=== PATIENT | male | born 1960 | race Caucasian/White ===

== ENCOUNTER 2022-01-09 09:58 | Outpatient (CLI) | payer OTHER, SELFPAY | END 2022-01-09 09:59 | disposition home or self-care (01) | LOC: LKVREF 01-22 09:04 | PROVIDERS: Visit Provider Nurse Practitioner Family | DX: R30.0 Dysuria (principal); N39.0 Urinary tract infection, site not specified | CPT/HCPCS: 87086; 87186 ==

== ENCOUNTER 2022-01-22 12:19 | Outpatient (CLI) | payer OTHER, SELFPAY | END 2022-01-22 12:20 | disposition home or self-care (01) | LOC: LKVREF 01-25 14:53 | PROVIDERS: Visit Provider Nurse Practitioner Family | DX: N39.0 Urinary tract infection, site not specified (principal); R30.0 Dysuria | CPT/HCPCS: 87086; 87186 ==

== ENCOUNTER 2022-02-02 22:54 | Outpatient (REF) | payer MEDICARE, SELFPAY ==
[2022-02-02 23:50] LABS: Chloride* 105 mmol/L (96-114); Potassium* 5.1 mmol/L (3.6-5.1); Sodium* 139 mmol/L (135-149)
[2022-02-02 23:53] LABS: Carbon Dioxide* 27 mmol/L (20-32); Creatinine* 1.5 mg/dL (0.5-1.5); Estimated Glomerular Filt Rate 52 ml/min
[2022-02-02 23:54] LABS: Blood Urea Nitrogen* 19 mg/dL (7-30); Calcium* 9.8 mg/dL (8.4-10.6); Glucose* 108 mg/dL (60-115)
[2022-02-02 23:58] LABS: Hematocrit 44.4 % (37.0-53.0); Hemoglobin* 13.7 gm/dL (13.5-17.5); Mean Corpuscular HGB Conc 31 gm/dL (32-36); Mean Corpuscular Hemoglobin 31 pg (26-34); Mean Corpuscular Volume 101 fL (80-100); White Blood Count* 11.52 K/uL (4.50-11.00)
[2022-02-02 23:59] LABS: Basophils Percent Auto 0.3 % (0.0-3.0); Eosinophils Percent Auto 1.9 % (0.0-7.0); Lymphocytes Percent Auto 20.7 % (20-44); Monocytes Percent Auto 7.4 % (0.0-11.0); Neutrophils Percent Auto 66.7 % (42.0-72.0); Platelet Count* 399 K/uL (140-440); Slide Review Reflex No
== END 2022-02-02 22:55 | disposition home or self-care (01) ==
LOC: LAB 22:54
PROVIDERS: Visit Provider Internal Medicine Nephrology
DX: Z94.0 Kidney transplant status (principal); G89.29 Other chronic pain
CPT/HCPCS: 36415; 80048; 85025

== ENCOUNTER 2022-03-10 13:41 | Outpatient (RCR) | payer OTHER, SELFPAY ==
[2022-03-10 13:58] LABS: Hematocrit 49.6 % (37.0-53.0); Hemoglobin* 15.6 gm/dL (13.5-17.5); Mean Corpuscular HGB Conc 32 gm/dL (32-36); Mean Corpuscular Hemoglobin 32 pg (26-34); Mean Corpuscular Volume 101 fL (80-100); Platelet Count* 274 K/uL (140-440)
[2022-03-10 14:04] LABS: Chloride* 108 mmol/L (96-114); Potassium* 4.6 mmol/L (3.6-5.1); Sodium* 139 mmol/L (135-149)
[2022-03-10 14:05] LABS: Slide Review Reflex No
[2022-03-10 14:07] LABS: Blood Urea Nitrogen* 21 mg/dL (7-30); Carbon Dioxide* 26 mmol/L (20-32); Creatinine* 1.7 mg/dL (0.5-1.5); Estimated Glomerular Filt Rate 45 ml/min; Glucose* 111 mg/dL (60-115)
[2022-03-10 14:08] LABS: Calcium* 9.8 mg/dL (8.4-10.6)
[2022-04-08 14:33] LABS: Basophils Absolute Auto 0.05 K/uL (0.00-0.30); Basophils Percent Auto 0.5 % (0.0-3.0); Eosinophils Percent Auto 1.1 % (0.0-7.0); Hematocrit 46.1 % (37.0-53.0); Hemoglobin* 14.8 gm/dL (13.5-17.5); Immature Granulocytes Abs Auto 0.03 K/uL (0.00-0.30); Immature Granulocytes Pct Auto 0.3 %; Lymphocytes Absolute Auto 2.63 K/uL (0.90-2.90); Lymphocytes Percent Auto 28.6 % (20-44); Mean Corpuscular HGB Conc 32 gm/dL (32-36); Mean Corpuscular Hemoglobin 32 pg (26-34); Mean Corpuscular Volume 100 fL (80-100); Neutrophils Absolute Auto 5.45 K/uL (1.7-7.0); Neutrophils Percent Auto 59.5 % (42.0-72.0); Platelet Count* 256 K/uL (140-440); Red Blood Count 4.62 m/uL (4.30-5.90); White Blood Count* 9.18 K/uL (4.50-11.00)
[2022-04-08 14:36] LABS: Chloride* 108 mmol/L (96-114)
[2022-04-08 14:37] LABS: Sodium* 141 mmol/L (135-149)
[2022-04-08 14:38] LABS: Slide Review Reflex No
[2022-04-08 14:39] LABS: Creatinine* 1.5 mg/dL (0.5-1.5); Estimated Glomerular Filt Rate 52 ml/min
[2022-04-08 14:40] LABS: Blood Urea Nitrogen* 17 mg/dL (7-30); Calcium* 9.6 mg/dL (8.4-10.6); Carbon Dioxide* 28 mmol/L (20-32); Glucose* 85 mg/dL (60-115)
== END 2023-02-22 15:14 | disposition home or self-care (01) ==
LOC: LAB 13:41
PROVIDERS: PCP Physician Assistant Medical; Visit Provider Internal Medicine Nephrology
DX: Z94.0 Kidney transplant status (principal); Z79.52 Long term (current) use of systemic steroids; Z79.899 Other long term (current) drug therapy; Z48.22 Encounter for aftercare following kidney transplant
CPT/HCPCS: 36415; 80048; 85025; 85027

== ENCOUNTER 2022-08-27 09:50 | Outpatient (CLI) | payer MEDICARE, SELFPAY | END 2022-08-27 09:51 | disposition home or self-care (01) | PROVIDERS: PCP Physician Assistant Medical; Visit Provider Physician Assistant Medical | DX: I10 Essential (primary) hypertension (principal); R53.83 Other fatigue; N18.6 End stage renal disease; E53.8 Deficiency of other specified B group vitamins; F32.A Depression, unspecified | CPT/HCPCS: 82306; 82607; 82728; 84443 ==

== ENCOUNTER 2022-10-20 09:33 | Outpatient (CLI) | payer OTHER, SELFPAY | END 2022-10-20 09:34 | disposition home or self-care (01) | LOC: NFLDREF 10-21 08:28 | PROVIDERS: PCP Physician Assistant Medical; Referring Provider Physician Assistant Medical; Visit Provider Physician Assistant Medical | DX: E53.8 Deficiency of other specified B group vitamins (principal); R79.89 Other specified abnormal findings of blood chemistry; E55.9 Vitamin D deficiency, unspecified; F33.1 Major depressive disorder, recurrent, moderate | CPT/HCPCS: 82306; 82607 ==

== ENCOUNTER 2023-06-07 11:59 | Outpatient (CLI) | payer OTHER, SELFPAY | END 2023-06-07 12:00 | disposition home or self-care (01) | LOC: NFLDREF 06-08 06:03 | PROVIDERS: PCP Physician Assistant Medical; Referring Provider Physician Assistant Medical; Visit Provider Physician Assistant Medical | DX: Z13.1 Encounter for screening for diabetes mellitus (principal); Z12.5 Encounter for screening for malignant neoplasm of prostate; M10.9 Gout, unspecified; K21.9 Gastro-esophageal reflux disease without esophagitis; E53.8 Deficiency of other specified B group vitamins; I10 Essential (primary) hypertension; N18.6 End stage renal disease; R79.89 Other specified abnormal findings of blood chemistry; N40.1 Benign prostatic hyperplasia with lower urinary tract symptoms; R35.0 Frequency of micturition; N52.9 Male erectile dysfunction, unspecified; G40.909 Epilepsy, unspecified, not intractable, without status epilepticus; F90.0 Attention-deficit hyperactivity disorder, predominantly inattentive type; F33.1 Major depressive disorder, recurrent, moderate; I48.91 Unspecified atrial fibrillation | CPT/HCPCS: 80053; 80061; 82306; 82607; 84443; G0103 ==

== ENCOUNTER 2024-09-24 16:14 | Outpatient (CLI) | payer OTHER, SELFPAY | END 2024-09-24 16:15 | disposition home or self-care (01) | LOC: NFLDREF 09-26 02:40 | PROVIDERS: PCP Physician Assistant Medical; Referring Provider Physician Assistant Medical; Visit Provider Physician Assistant Medical | DX: M10.9 Gout, unspecified (principal); E53.8 Deficiency of other specified B group vitamins; E55.9 Vitamin D deficiency, unspecified; I12.0 Hypertensive chronic kidney disease with stage 5 chronic kidney disease or end stage renal disease; N18.6 End stage renal disease; N40.1 Benign prostatic hyperplasia with lower urinary tract symptoms; R35.0 Frequency of micturition; E66.01 Morbid (severe) obesity due to excess calories; Z12.5 Encounter for screening for malignant neoplasm of prostate | CPT/HCPCS: 80053; 80061; 82043; 82306; 82570; 82607; 84443; G0103 ==

== ENCOUNTER 2024-10-31 14:12 | Outpatient (CLI) | payer OTHER, SELFPAY | END 2024-10-31 14:13 | disposition home or self-care (01) | LOC: FRMREF 14:13 | PROVIDERS: PCP Physician Assistant Medical; Visit Provider Physician Assistant Medical | DX: N30.01 Acute cystitis with hematuria (principal) | CPT/HCPCS: 87086 ==

== ENCOUNTER 2025-02-21 00:06 | Emergency (ER) | payer OTHER, SELFPAY ==
--- OUTSIDE RECORDS SUMMARY | 2025-01-24 19:00 | XMS_ITS | Clinical Summary ---
Author Organization Unknown Care Team Providers Care Intensive Care Medicine Specialist Name Role Phone MARTHA RASCON Unavailable Unavailable YOVANY EPIC SPECIALIST, DANIEL Unavailable Unavailable GRANT PT, JUAN F Unavailable Unavailable SCARLETT SACK SORTER, WILDA Unavailable Unavailable CHONG RN, VIKKI Unavailable Unavailable Payers Payer Name Policy Type Policy Number Effective Date Expira tion Date [employer] MEDICARE ADVANTAGE PDGM Problems Condition Name Condition Details Condition Category Status Onset Date Resolution Date Last Treatment Date Treating Clinician Comments HYP HRT AND CHR KDNY DIS W HRT FAIL AND STG 1-4/UNSP CHR KDNY Active 11-08 00:00: 00 CHRONIC COMBINED SYSTOLIC AND DIASTOLIC HRT FAIL Active 11-08 00:00: 00 CHRONIC KIDNEY DISEASE, UNSPECIFIED Active 11-08 00:00: 00 TYPICAL ATRIAL FLUTTER Active 11-08 00:00: 00 OTHER PERSISTENT ATRIAL FIBRILLATION Active 11-08 00:00: 00 EPILEPSY, UNSP, NOT INTRACTABLE, WITHOUT STATUS EPILEPTICUS Active 11-08 00:00: 00 ANEURYSM OF OTHER SPECIFIED ARTERIES Active 11-08 00:00: 00 RESTLESS LEGS SYNDROME Active 11-08 00:00: 00 VITAMIN D DEFICIENCY, UNSPECIFIED Active 11-08 00:00: 00 OBSTRUCTIVE SLEEP APNEA (ADULT) (PEDIATRIC) Active 11-08 00:00: 00 HYPERLIPIDEM IA, UNSPECIFIED Active 11-08 00:00: 00 POLYNEUROPAT HY, UNSPECIFIED Active 11-08 00:00: 00 RADICULOPATH Y, CERVICAL REGION Active 11-08 00:00: 00 PREDIABETES Active 11-08 00:00: 00 BENIGN PROSTATIC HYPERPLASIA WITHOUT LOWER URINRY TRACT SYMP Active 11-08 00:00: 00 GOUT, UNSPECIFIED Active 11-08 00:00: 00 GASTRO-ESOPH AGEAL REFLUX DISEASE WITHOUT ESOPHAGITIS Active 11-08 00:00: 00 DEPRESSION, UNSPECIFIED Active 11-08 00:00: 00 ANEMIA IN CHRONIC KIDNEY DISEASE Active 11-08 00:00: 00 UNSPECIFIED OSTEOARTHRIT IS, UNSPECIFIED SITE Active 11-08 00:00: 00 KIDNEY TRANSPLANT STATUS Active 11-08 00:00: 00 PERSONAL HISTORY OF OTHER MALIGNANT NEOPLASM OF SKIN Active 11-08 00:00: 00 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 Active 01-04 00:00: 00 [facility] (CURRENT) USE OF SYSTEMIC STEROIDS Active 01-04 00:00: 00 PERSONAL HISTORY OF URINARY (TRACT) INFECTIONS Active 01-04 00:00: 00 Allergies, Adverse Reactions, Alerts Allergy Name Allergy Type Status Severity Reaction(s) Onset Date Inactive Date Treating Clinician Comments IBUPROFEN Propensity to adverse reactions Active 11-08 14:57: 01 MILK Propensity to adverse reactions Active 11-08 14:56: 03 NSAIDS Propensity to adverse reactions Active 11-08 14:56: 42 LACTOSE Propensity to adverse reactions Active 11-08 14:56: 09 GLUTEN MEAL Propensity to adverse reactions Active 11-08 14:56: 15 MOLDS AND SMUTS Propensity to adverse reactions Active 07 10:50: 30 YEAST RELATED PRODUCTS Propensity to adverse reactions Active 11-08 14:57: 11 Medications Ordered Medication Name Filled Medication Name Start Date Stop Date Current Medication? Ordering Clinician Indication Dosage Frequency Signature (SIG) Comments Components acetaminoph en 500 mg tablet 11-08 00:00: 00 Yes [id number] PAIN 2 tablet NEEDED 2 tablet NEEDED (route: oral) Med Classific ation: Analgesic , Anti-infl ammatory or Antipyret ic acyclovir 200 mg capsule 11-08 00:00: 00 Yes [id number] HERPES 1 capsule 2 TIMES DAILY 1 capsule 2 TIMES DAILY (route: oral) Med Classific ation: Anti-Infe ctive Agents allopurinol 100 mg tablet 11-08 00:00: 00 Yes [id number] GOUT 1 tablet DAILY 1 tablet DAILY (route: oral) Med Classific ation: Gout and Hyperuric emia Therapy amoxicillin 500 mg tablet 11-08 00:00: 00 11-09 23:59 :00 No [id number] UTI 1 tablet 3 TIMES DAILY 1 tablet 3 TIMES DAILY (route: oral) Med Classific ation: Anti-Infe ctive Agents cyclosporin e 25 mg capsule 11-08 00:00: 00 Yes [id number] IMMUNOSUPRE SSANT 3 capsule 2 TIMES DAILY 3 capsule 2 TIMES DAILY (route: oral) Med Classific ation: Immunosup pressive Agents Eliquis 5 mg tablet 11-08 00:00: 00 Yes [id number] AFIB 1 tablet EVERY 12 HOURS 1 tablet EVERY 12 HOURS (route: oral) Med Classific ation: Hematolog ical Agents Keppra 250 mg tablet 11-08 00:00: 00 Yes [id number] SEIZURES 3 tablet 2 TIMES DAILY 3 tablet 2 TIMES DAILY (route: oral) Med Classific ation: Central Nervous System Agents metoprolol succinate ER 200 mg tablet,exte nded release 24 hr 11-08 00:00: 00 Yes [id number] HTN 1 tablet DAILY 1 tablet DAILY (route: oral) Med Classific ation: Cardiovas cular Therapy Agents mycophenola te mofetil 500 mg tablet 11-08 00:00: 00 Yes [id number] KIDNEY TRANSPLANT 2 tablet 2 TIMES DAILY 2 tablet 2 TIMES DAILY (route: oral) Med Classific ation: Immunosup pressive Agents omeprazole 20 mg capsule,del ayed release 11-08 00:00: 00 Yes [id number] GERD 1 capsule DAILY 1 capsule DAILY (route: oral) Med Classific ation: Gastroint estinal Therapy Agents ondansetron 4 mg disintegrat ing tablet 11-08 00:00: 00 Yes [id number] NAUSEA AND VOMITING 1 tablet NEEDED 1 tablet NEEDED (route: oral) Med Classific ation: Gastroint estinal Therapy Agents pravastatin 80 mg tablet 11-08 00:00: 00 Yes [id number] CHOLESTEROL 1 tablet DAILY 1 tablet DAILY (route: oral) Med Classific ation: Cardiovas cular Therapy Agents prednisone 5 mg tablet 11-08 00:00: 00 Yes [id number] STERIOD 1 tablet DAILY 1 tablet DAILY (route: oral) Med Classific ation: Endocrine Refresh Tears 0.5 % eye drops 11-08 00:00: 00 11-08 23:59 :00 No [id number] DRY EYES 1 drops 4 TIMES DAILY 1 drops 4 TIMES DAILY (route: ophthalmic (eye)) Med Classific ation: Ophthalmi c Agents sennosides 8.6 mg-docusate sodium 50 mg tablet 11-08 00:00: 00 Yes [id number] CONSTIPATIO N 1 tablet 2 TIMES DAILY 1 tablet 2 TIMES DAILY (route: oral) Med Classific ation: Gastroint estinal Therapy Agents tamsulosin 0.4 mg capsule 11-08 00:00: 00 Yes [id number] URINARY RETENTION 1 capsule DAILY 1 capsule DAILY (route: oral) Med Classific ation: Genitouri nary Therapy trazodone 50 mg tablet 11-08 00:00: 00 12-07 23:59 :00 No [id number] SLEEP 1 tablet DAILY 1 tablet DAILY (route: oral) Med Classific ation: Central Nervous System Agents venlafaxine ER 150 mg capsule,ext ended release 24 hr 11-08 00:00: 00 Yes [id number] ADHD 1 capsule DAILY 1 capsule DAILY (route: oral) Med Classific ation: Central Nervous System Agents amoxicillin 500 mg capsule 11-12 00:00: 00 11-19 23:59 :00 No [id number] UTI 1 capsule 3 TIMES DAILY 1 capsule 3 TIMES DAILY (route: oral) Med Classific ation: Anti-Infe ctive Agents cephalexin 500 mg capsule 12-11 00:00: 00 12-25 23:59 :00 No [id number] WOUND INFECTION 1 capsule 2 TIMES DAILY 1 capsule 2 TIMES DAILY (route: oral) Med Classific ation: Anti-Infe ctive Agents Immunizations Ordered Immunization Name Filled Immunization Name Date Status Comments Refusal Reason COVID-19 PFIZER 2, COVID-19 PFIZER 2 2024-02-29 00:00:00 INFLUENZA, LAIV (LIVE VIRUS) 2024-02-29 00:00:00 SHINGLES, TIV (INACTIVATED) 2019-03-12 00:00:00 PNEUMOCOCCAL (PPV), PPV 2018-01-05 00:00:00 Vital Signs Vital Name Observation Time Observation Value Commen ts Temperature 2025-01-25 09:19:00.000 97.8 [degF] Temperature 2025-01-16 12:36:00.000 97.6 [degF] Temperature 2025-01-10 10:39:00.000 97.8 [degF] Pulse 2025-01-25 09:19:00.000 97 /min Pulse 2025-01-16 12:36:00.000 87 /min Pulse 2025-01-10 10:39:00.000 99 /min O2 Saturation (%) 2025-01-25 09:19:00.000 95 % O2 Saturation (%) 2025-01-16 12:36:00.000 94 % O2 Saturation (%) 2025-01-10 10:39:00.000 95 % Respirations 2025-01-25 09:19:00.000 16 /min Respirations 2025-01-16 12:36:00.000 16 /min Respirations 2025-01-10 10:39:00.000 16 /min Weight (lbs) 2025-01-25 09:20:00.000 259 [lb_av] Weight (lbs) 2025-01-10 10:40:00.000 267 [lb_av] Systolic Blood Pressure 2025-01-25 09:19:00.000 127 mm [Hg] Systolic Blood Pressure 2025-01-16 12:36:00.000 149 mm [Hg] Systolic Blood Pressure 2025-01-10 10:39:00.000 128 mm [Hg] Diastolic Blood Pressure 2025-01-25 09:19:00.000 81 mm [Hg] Diastolic Blood Pressure 2025-01-16 12:36:00.000 103 m m[Hg] Diastolic Blood Pressure 2025-01-10 10:39:00.000 86 mm [Hg] Plan of Treatment Planned Activity Planned Date Details Comments Future Scheduled Test SKILLED NU RSE TO EVALUATE AND DEVELOP PLAN OF CARE TO BE COUNTERSIGNED BY PHYSICIAN. SKILLED NURSE TO ASSESS/EVALUATE CO-MORBID CONDITIONS INCLUDING A41.81 SEPSIS DUE TO ENTEROCOCCUS ONSET: 11/08/2024 N39.0 URINARY TRACT INFECTION, SITE NOT SPECIFIED EXACERBATION: 11/08/2024 I48.3 TYPICAL ATRIAL FLUTTER EXACERBATION: 11/08/2024 I48.19 OTHER PERSISTENT ATRIAL FIBRILLATION EXACERBATION: 11/08/2024 G40.909 EPILEPSY, UNSP, NOT INTRACTABLE, WITHOUT STATUS EPILEPTICUS EXACERBATION: 11/08/2024 I72.8 ANEURYSM OF OTHER SPECIFIED ARTERIES EXACERBATION: 11/08/2024 I13.0 HYP HRT CHR KDNY DIS W HRT FAIL AND STG 1-4/UNSP CHR KDNY EXACERBATION: 11/08/2024 I50.42 CHRONIC COMBINED SYSTOLIC AND DIASTOLIC HRT FAIL EXACERBATION: 11/08/2024 N18.9 CHRONIC KIDNEY DISEASE, UNSPECIFIED EXACERBATION: 11/08/2024 G25.81 RESTLESS LEGS SYNDROME EXACERBATION: 11/08/2024 E55.9 VITAMIN D DEFICIENCY, UNSPECIFIED EXACERBATION: 11/08/2024 G47.33 OBSTRUCTIVE SLEEP APNEA (ADULT) (PEDIATRIC) EXACERBATION: 11/08/2024 E78.5 HYPERLIPIDEMIA, UNSPECIFIED EXACERBATION: 11/08/2024 G62.9 POLYNEUROPATHY, UNSPECIFIED EXACERBATION: 11/08/2024 M54.12 RADICULOPATHY, CERVICAL REGION EXACERBATION: 11/08/2024 R73.03 PREDIABETES EXACERBATION: 11/08/2024 N40.0 BENIGN PROSTATIC HYPERPLASIA WITHOUT LOWER URINRY TRACT SYMP EXACERBATION: 11/08/2024 M10.9 GOUT, UNSPECIFIED EXACERBATION: 11/08/2024 K21.9 GASTRO-ESOPHAGEAL REFLUX DISEASE WITHOUT ESOPHAGITIS EXACERBATION: 11/08/2024 D63.1 ANEMIA IN CHRONIC KIDNEY DISEASE EXACERBATION: 11/08/2024 F32.A DEPRESSION, UNSPECIFIED EXACERBATION: 11/08/2024 M19.90 UNSPECIFIED OSTEOARTHRITIS, UNSPECIFIED SITE EXACERBATION: 11/08/2024 Z94.0 KIDNEY TRANSPLANT STATUS EXACERBATION: 11/08/2024 Z85.828 PERSONAL HISTORY OF OTHER MALIGNANT NEOPLASM OF SKIN EXACERBATION: 11/08/2024 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 HOME HEALTH AGENCY MAY ACCEPT ORDERS FROM THE FOLLOWING PHYSICIANS AND THEIR ASSOCIATES: MARTHA RASCON, DONY ROBERTSON, PINEDA VEGA, PAULINA ESTRADA, GERRY FIERRO EMERGENCY PREPAREDNESS PLAN: REVIEWED EMERGENCY PREPAREDNESS PLAN, CLIENT WILL EVACUATE TO [facility] IN PLACE EVACUATION PLAN IN THE EVENT OF AN EMERGENCY. ACUITY STATUS: WITHIN A WEEK POC SUMMARY: PRIMARY DIAGNOSIS FOR CONTINUED (RECERT) CARE- I50.42 CHRONIC COMBINED SYSTOLIC AND DIASTOLIC HRT FAIL REASON FOR CONTINUED CARE: (WHY PREVIOUS GOALS WERE NOT MET WHAT CAUSED THE GOALS NOT TO BE MET IN PREVIOUS EPISODE. COMORBIDITIES IMPACT ON CARE ) ONGOING HYPERTENSION RELATED TO CHF AND WOUND CARE TO BACK. IN NEED OF ONGOING MONITORING RELATED TO BP MANAGEMENT AND WOUND CARE ARE THERE ANY NEW MEDICAL CONDITIONS SINCE SOC/MY NO MEDICATION RECONCILIATION RESULTS (NEW OR CHANGED MEDICATIONS MISSED DOSES PROGRESS OF CAREGIVER TRAINING ) MEDICATION RECONCILIATION COMPLETED. REVIEWED ALL CURRENT MEDICATIONS INCLUDING NAME, DOSAGE, TIMING, AND PURPOSE. DISCUSSED COMMON SIDE EFFECTS AND IMPORTANCE OF ADHERENCE. EDUCATED ON USE OF A WEEKLY PILL ORGANIZER TO PROMOTE COMPLIANCE AND REDUCE RISK OF ERRORS. NO DISCREPANCIES NOTED. PATIENT VERBALIZED UNDERSTANDING AND AGREED TO CONTINUE CURRENT REGIMEN. ADDITIONAL DISCIPLINES ORDERED AND WHY LALITO MURILLO ESTIMATED DURATION OF CONTINUED SKILLED CARE: (NUMBER OF WEEKS VISITS PLOTTED) 1X A WEEK FOR 3 WEEKS ANY ER/HOSPITALIZATION CARE DURING PREVIOUS EPISODE (IF YES, PROVIDE DETAILS QI REPORTS, ACL NOTES, COORDINATION NOTES) NO DOES THE CLIENT EXHIBIT COGNITIVE OR BEHAVIORAL DEFICITS IMPACTING ADHERENCE TO HOME HEALTH PLAN OF CARE IF YES, EXPLAIN NO DOES THE CLIENT/CAREGIVER HAVE APPROPRIATE RETURN DEMONSTRATION OF SKILLS OR EDUCATION IF YES, EXPLAIN PLAN FOR DISCHARGE. IF NO, EXPLAIN PLAN FOR MEETING NEEDS. YES, WILL DC WHEN WOUND IS HEALED AND BP IS WELL MANAGED [facility] 10 SCORE- 5 PLEASE NOTE IF SCORE 7 OR ABOVE, FOLLOWING QUESTIONS MUST BE ANSWERED, FOR OF SCORE 4-6- HIGHLY RECOMMENDED TO ANSWER: 1> WHAT SPECIFIC INTERVENTIONS ARE IN PLAN OF CARE TO PREVENT A FALL EDUCATION AND ASSISTIVE DEVICES 2> DOES THERAPY NEED TO BE INVOLVED (IF NOT ALREADY ORDERED) NO 3> IS LEVEL OF CARE APPROPRIATE FOR CLIENT TO PREVENT FALLS YES 4> ANY ADDITIONAL EQUIPMENT NEEDED TO PREVENT FALLS NO 5> HOW MANY FALLS HAS CLIENT HAD SINCE LAST SOC/MY 1 [code = SKILLED NURSE TO EVALUATE AND DEVELOP PLAN OF CARE TO BE COUNTERSIGNED BY PHYSICIAN. SKILLED NURSE TO ASSESS/EVALUATE CO-MORBID CONDITIONS INCLUDING A41.81 SEPSIS DUE TO ENTEROCOCCUS ONSET: 11/08/2024 N39.0 URINARY TRACT INFECTION, SITE NOT SPECIFIED EXACERBATION: 11/08/2024 I48.3 TYPICAL ATRIAL FLUTTER EXACERBATION: 11/08/2024 I48.19 OTHER PERSISTENT ATRIAL FIBRILLATION EXACERBATION: 11/08/2024 G40.909 EPILEPSY, UNSP, NOT INTRACTABLE, WITHOUT STATUS EPILEPTICUS EXACERBATION: 11/08/2024 I72.8 ANEURYSM OF OTHER SPECIFIED ARTERIES EXACERBATION: 11/08/2024 I13.0 HYP HRT CHR KDNY DIS W HRT FAIL AND STG 1-4/UNSP CHR KDNY EXACERBATION: 11/08/2024 I50.42 CHRONIC COMBINED SYSTOLIC AND DIASTOLIC HRT FAIL EXACERBATION: 11/08/2024 N18.9 CHRONIC KIDNEY DISEASE, UNSPECIFIED EXACERBATION: 11/08/2024 G25.81 RESTLESS LEGS SYNDROME EXACERBATION: 11/08/2024 E55.9 VITAMIN D DEFICIENCY, UNSPECIFIED EXACERBATION: 11/08/2024 G47.33 OBSTRUCTIVE SLEEP APNEA (ADULT) (PEDIATRIC) EXACERBATION: 11/08/2024 E78.5 HYPERLIPIDEMIA, UNSPECIFIED EXACERBATION: 11/08/2024 G62.9 POLYNEUROPATHY, UNSPECIFIED EXACERBATION: 11/08/2024 M54.12 RADICULOPATHY, CERVICAL REGION EXACERBATION: 11/08/2024 R73.03 PREDIABETES EXACERBATION: 11/08/2024 N40.0 BENIGN PROSTATIC HYPERPLASIA WITHOUT LOWER URINRY TRACT SYMP EXACERBATION: 11/08/2024 M10.9 GOUT, UNSPECIFIED EXACERBATION: 11/08/2024 K21.9 GASTRO-ESOPHAGEAL REFLUX DISEASE WITHOUT ESOPHAGITIS EXACERBATION: 11/08/2024 D63.1 ANEMIA IN CHRONIC KIDNEY DISEASE EXACERBATION: 11/08/2024 F32.A DEPRESSION, UNSPECIFIED EXACERBATION: 11/08/2024 M19.90 UNSPECIFIED OSTEOARTHRITIS, UNSPECIFIED SITE EXACERBATION: 11/08/2024 Z94.0 KIDNEY TRANSPLANT STATUS EXACERBATION: 11/08/2024 Z85.828 PERSONAL HISTORY OF OTHER MALIGNANT NEOPLASM OF SKIN EXACERBATION: 11/08/2024 Z79.01 [facility] (CURRENT) USE OF ANTICOAGULANTS EXACERBATION: 11/08/2024 Z79.52 [facility] (CURRENT) USE OF SYSTEMIC STEROIDS EXACERBATION: 11/08/2024 AND OTHER CONDITIONS THAT PRESENT THEMSELVES DURING THE COURSE OF THIS EPISODE TO IDENTIFY CHANGES AND INTERVENE TO MINIMIZE COMPLICATIONS. HOME HEALTH AGENCY MAY ACCEPT ORDERS FROM THE FOLLOWING PHYSICIANS AND THEIR ASSOCIATES: MARTHA RASCON, DONY ROBERTSON, PINEDA VEGA, PAULINA ESTRADA, GERRY FIERRO EMERGENCY PREPAREDNESS PLAN: REVIEWED EMERGENCY PREPAREDNESS PLAN, CLIENT WILL EVACUATE TO [facility] IN PLACE EVACUATION PLAN IN THE EVENT OF AN EMERGENCY. ACUITY STATUS: WITHIN A WEEK POC SUMMARY: PRIMARY DIAGNOSIS FOR CONTINUED (RECERT) CARE- I50.42 CHRONIC COMBINED SYSTOLIC AND DIASTOLIC HRT FAIL REASON FOR CONTINUED CARE: (WHY PREVIOUS GOALS WERE NOT MET WHAT CAUSED THE GOALS NOT TO BE MET IN PREVIOUS EPISODE. COMORBIDITIES IMPACT ON CARE ) ONGOING HYPERTENSION RELATED TO CHF AND WOUND CARE TO BACK. IN NEED OF ONGOING MONITORING RELATED TO BP MANAGEMENT AND WOUND CARE ARE THERE ANY NEW MEDICAL CONDITIONS SINCE SOC/MY NO MEDICATION RECONCILIATION RESULTS (NEW OR CHANGED MEDICATIONS MISSED DOSES PROGRESS OF CAREGIVER TRAINING ) MEDICATION RECONCILIATION COMPLETED. REVIEWED ALL CURRENT MEDICATIONS INCLUDING NAME, DOSAGE, TIMING, AND PURPOSE. DISCUSSED COMMON SIDE EFFECTS AND IMPORTANCE OF ADHERENCE. EDUCATED ON USE OF A WEEKLY PILL ORGANIZER TO PROMOTE COMPLIANCE AND REDUCE RISK OF ERRORS. NO DISCREPANCIES NOTED. PATIENT VERBALIZED UNDERSTANDING AND AGREED TO CONTINUE CURRENT REGIMEN. ADDITIONAL DISCIPLINES ORDERED AND WHY LALITO MURILLO ESTIMATED DURATION OF CONTINUED SKILLED CARE: (NUMBER OF WEEKS VISITS PLOTTED) 1X A WEEK FOR 3 WEEKS ANY ER/HOSPITALIZATION CARE DURING PREVIOUS EPISODE (IF YES, PROVIDE DETAILS QI REPORTS, ACL NOTES, COORDINATION NOTES) NO DOES THE CLIENT EXHIBIT COGNITIVE OR BEHAVIORAL DEFICITS IMPACTING ADHERENCE TO HOME HEALTH PLAN OF CARE IF YES, EXPLAIN NO DOES THE CLIENT/CAREGIVER HAVE APPROPRIATE RETURN DEMONSTRATION OF SKILLS OR EDUCATION IF YES, EXPLAIN PLAN FOR DISCHARGE. IF NO, EXPLAIN PLAN FOR MEETING NEEDS. YES, WILL DC WHEN WOUND IS HEALED AND BP IS WELL MANAGED [facility] 10 SCORE- 5 PLEASE NOTE IF SCORE 7 OR ABOVE, FOLLOWING QUESTIONS MUST BE ANSWERED, FOR OF SCORE 4-6- HIGHLY RECOMMENDED TO ANSWER: 1> WHAT SPECIFIC INTERVENTIONS ARE IN PLAN OF CARE TO PREVENT A FALL EDUCATION AND ASSISTIVE DEVICES 2> DOES THERAPY NEED TO BE INVOLVED (IF NOT ALREADY ORDERED) NO 3> IS LEVEL OF CARE APPROPRIATE FOR CLIENT TO PREVENT FALLS YES 4> ANY ADDITIONAL EQUIPMENT NEEDED TO PREVENT FALLS NO 5> HOW MANY FALLS HAS CLIENT HAD SINCE LAST SOC/MY 1] Future Scheduled Test SKILLED NU RSE TO PROVIDE INSTRUCTION IN ENERGY CONSERVATION TECHNIQUES DESIGNED TO MAXIMIZE PATIENT'S PRODUCTIVITY WITH FUNCTIONAL ACTIVITIES. [code = SKILLED NURSE TO PROVIDE INSTRUCTION IN ENERGY CONSERVATION TECHNIQUES DESIGNED TO MAXIMIZE PATIENT'S PRODUCTIVITY WITH FUNCTIONAL ACTIVITIES.] Future Scheduled Test SKILLED NU RSE TO OBSERVE AND ASSESS CARDIOVASCULAR SYSTEM TO IDENTIFY CHANGES AND INTERVENE TO MINIMIZE COMPLICATIONS. SKILLED NURSE TO PROVIDE SKILLED TEACHING RELATED TO ALTERED CARDIOVASCULAR STATUS INCLUDING PATHOPHYSIOLOGY, NUTRITION, MEDICATION REGIMEN, AND PERMITTED ACTIVITIES. MAY PERFORM O2 SATURATION LEVELS PRN FOR SIGNS AND/OR SYMPTOMS OF POSSIBLE RESPIRATORY COMPLICATIONS. [code = SKILLED NURSE TO OBSERVE AND ASSESS CARDIOVASCULAR SYSTEM TO IDENTIFY CHANGES AND INTERVENE TO MINIMIZE COMPLICATIONS. SKILLED NURSE TO PROVIDE SKILLED TEACHING RELATED TO ALTERED CARDIOVASCULAR STATUS INCLUDING PATHOPHYSIOLOGY, NUTRITION, MEDICATION REGIMEN, AND PERMITTED ACTIVITIES. MAY PERFORM O2 SATURATION LEVELS PRN FOR SIGNS AND/OR SYMPTOMS OF POSSIBLE RESPIRATORY COMPLICATIONS.] Future Scheduled Test SKILLED NU RSE TO PROVIDE SKILLED TEACHING/REINFORCEMENT OF MANAGEMENT OF HYPERTENSION. [code = SKILLED NURSE TO PROVIDE SKILLED TEACHING/REINFORCEMENT OF MANAGEMENT OF HYPERTENSION.] Future Scheduled Test WOUND CARE TO SURGICAL SITE WOUND ON BACK: CLEANSE WITH WOUND CLEANSER, PAT DRY, APPLY STERILE HONEY, COVER WITH BORDERED FOAM DRESSING 2X A WEEK AND PRN. [code = WOUND CARE TO SURGICAL SITE WOUND ON BACK: CLEANSE WITH WOUND CLEANSER, PAT DRY, APPLY STERILE HONEY, COVER WITH BORDERED FOAM DRESSING 2X A WEEK AND PRN.] Future Scheduled Test SKILLED NU RSE TO INSTRUCT ON INFECTION CONTROL MEASURES [code = SKILLED NURSE TO INSTRUCT ON INFECTION CONTROL MEASURES] Future Scheduled Test SKILLED NU RSE FOR OBSERVATION / ASSESSMENT HOSPITALIZATION RISKS TO IDENTIFY CHANGES AND INTERVENE TO MINIMIZE COMPLICATIONS RELATED TO IDENTIFIED HOSPITALIZATION RISKS OF MULTIPLE HOSPITALIZATIONS AND / OR MULTIPLE EMERGENCY DEPARTMENT VISITS IN THE PAST SIX MONTHS SKILLED NURSE TO PROVIDE SKILLED TEACHING RELATED TO THESE HOSPITALIZATION RISKS INCLUDING ADDRESSING ASSESSMENT OF CAUSITIVE DIAGNOSES, IDENTIFY CLIENT SPECIFIC BARRIERS INCREASING RISK AND ENSURING CLIENTS ABILITY TO IDENTIFY SYMPTOMS FOR FOLLOW UP. [code = SKILLED NURSE FOR OBSERVATION / ASSESSMENT HOSPITALIZATION RISKS TO IDENTIFY CHANGES AND INTERVENE TO MINIMIZE COMPLICATIONS RELATED TO IDENTIFIED HOSPITALIZATION RISKS OF MULTIPLE HOSPITALIZATIONS AND / OR MULTIPLE EMERGENCY DEPARTMENT VISITS IN THE PAST SIX MONTHS SKILLED NURSE TO PROVIDE SKILLED TEACHING RELATED TO THESE HOSPITALIZATION RISKS INCLUDING ADDRESSING ASSESSMENT OF CAUSITIVE DIAGNOSES, IDENTIFY CLIENT SPECIFIC BARRIERS INCREASING RISK AND ENSURING CLIENTS ABILITY TO IDENTIFY SYMPTOMS FOR FOLLOW UP.] Future Scheduled Test SKILLED NU RSE FOR OBSERVATION / ASSESSMENT HOSPITALIZATION RISKS TO IDENTIFY CHANGES AND INTERVENE TO MINIMIZE COMPLICATIONS RELATED TO IDENTIFIED HOSPITALIZATION RISKS OF DECLINE IN MENTAL, EMOTIONAL, OR BEHAVIORAL STATUS AND / OR DIFFICULTY COMPLYING WITH MEDICAL INSTRUCTIONS IN THE PAST THREE MONTHS. SKILLED NURSE TO PROVIDE SKILLED TEACHING RELATED TO THESE HOSPITALIZATION RISKS INCLUDING ADDRESSING CLIENT / CAREGIVER STRATERIES FOR PREVENTION OF INJURY AND CARE TEAM INITIATIVES TO FACILITATE COMMUNICATION AND RECOGNIZE CHANGES FROM BASELINE. [code = SKILLED NURSE FOR OBSERVATION / ASSESSMENT HOSPITALIZATION RISKS TO IDENTIFY CHANGES AND INTERVENE TO MINIMIZE COMPLICATIONS RELATED TO IDENTIFIED HOSPITALIZATION RISKS OF DECLINE IN MENTAL, EMOTIONAL, OR BEHAVIORAL STATUS AND / OR DIFFICULTY COMPLYING WITH MEDICAL INSTRUCTIONS IN THE PAST THREE MONTHS. SKILLED NURSE TO PROVIDE SKILLED TEACHING RELATED TO THESE HOSPITALIZATION RISKS INCLUDING ADDRESSING CLIENT / CAREGIVER STRATERIES FOR PREVENTION OF INJURY AND CARE TEAM INITIATIVES TO FACILITATE COMMUNICATION AND RECOGNIZE CHANGES FROM BASELINE.] Future Scheduled Test SKILLED NU RSE TO PROVIDE AND INSTRUCT REGARDING FALL PREVENTION INTERVENTIONS. [code = SKILLED NURSE TO PROVIDE AND INSTRUCT REGARDING FALL PREVENTION INTERVENTIONS.] Future Scheduled Test SKILLED NU RSE TO MONITOR PLAN FOR CURRENT TREATMENT OF DEPRESSION SUCH EFFECTS OF MEDICATION AND/OR NEED FOR REFERRAL FOR OTHER TREATMENT. [code = SKILLED NURSE TO MONITOR PLAN FOR CURRENT TREATMENT OF DEPRESSION SUCH EFFECTS OF MEDICATION AND/OR NEED FOR REFERRAL FOR OTHER TREATMENT.] Future Scheduled Test SKILLED NU RSE TO PROVIDE/INSTRUCT REGARDING INTERVENTION(S) TO MONITOR AND MITIGATE PAIN. [code = SKILLED NURSE TO PROVIDE/INSTRUCT REGARDING INTERVENTION(S) TO MONITOR AND MITIGATE PAIN.] Future Scheduled Test VIKKI GREENE 01/07/2025 VO FROM AGENT RN FOR MARTHA RASCON WITH [facility] FOR RECERTIFICATION OF SN 1X A WEEK FOR 3 WEEKS [code = VIKKI SCHWARZ 01/07/2025 VO FROM AGENT TERRY FOR MARTHA RASCON WITH [facility] FOR RECERTIFICATION OF SN 1X A WEEK FOR 3 WEEKS] Goal 2025-01-04 Patient Goal - G ET STRONGER, GET RID OF INFECTION Goal Patient Goal - G ET STRONGER, GET RID OF INFECTION Goal Provider Goal - A PLAN OF CARE WILL BE ESTABLISHED THAT MEETS THE PATIENT'S NURSING NEEDS AND COUNTERSIGNED BY PHYSICIAN. ALL GOALS TO BE MET BY END OF CURRENTLY APPROVED PLAN OF CARE. Goal Provider Goal - PATIENT / CAREGIVER TO DEMONSTRATE UNDERSTANDING OF AND COMPLIANCE WITH ENERGY CONSERVATION MEASURES, EVIDENCED BY INCREASED PRODUCTIVITY WITH FUNCTIONAL ACTIVITIES EOE: 03/07/2025 Goal Provider Goal - CARDIOVASCULAR EXACERBATIONS WILL BE IDENTIFIED PROMPTLY AND INTERVENTIONS INITIATED TO MINIMIZE RISKS. PATIENT/CAREGIVER WILL VERBALIZE/DEMONSTRATE AN ABILITY TO MANAGE CARDIOVASCULAR DISEASE EVIDENCED BY NO UNPLANNED HOSPITALIZATIONS BY .EOE: 03/07/2025 ABNORMAL O2 SATURATION LEVELS WILL BE REPORTED TO PHYSICIAN. Goal Provider Goal - PATIENT/CAREGIVER VERBALIZE/DEMOSTRATE ABILITY TO MANAGE HYPERTENSION EVIDENCED BY BLOOD PRESSURE READINGS CONSISTENTLY WITHIN PHYSICIAN APPROVED PARAMETERS BY EOE: 03/07/2025 Goal Provider Goal - PATIENT / CAREGIVER WILL VERBALIZE/DEMONSTRATE ABILITY TO PERFORM WOUND CARE. WOUND STATUS WILL IMPROVE EVIDENCED BY A DECREASE IN SIZE, DRAINAGE, ABSENCE OF INFECTION, AND DECREASED PAIN BY EOE: 03/07/2025 Goal Provider Goal - PATIENT / CAREGIVER WILL VERBALIZE UNDERSTANDING / DEMONSTRATE APPROPRIATE INFECTION CONTROL MEASURES. Goal Provider Goal - HOSPITALIZATION RISKS WILL BE IDENTIFIED PROMPTLY AND INTERVENTIONS INITIATED TO MINIMIZE ASSOCIATED RISKS. PATIENT / CAREGIVER WILL VERBALIZE/DEMONSTRATE AN ABILITY TO MANAGE RISKS FOR HOSPITALIZATION EVIDENCED BY NO UNPLANNED HOSPITALIZATIONS. Goal Provider Goal - HOSPITALIZATION RISKS WILL BE IDENTIFIED PROMPTLY AND INTERVENTIONS INITIATED TO MINIMIZE ASSOCIATED RISKS. PATIENT / CAREGIVER WILL VERBALIZE/DEMONSTRATE AN ABILITY TO MANAGE RISKS FOR HOSPITALIZATION EVIDENCED BY NO UNPLANNED HOSPITALIZATIONS. Goal Provider Goal - CHANGES IN PATIENT CO-MORBID STATUS WILL BE PROMPTLY IDENTIFIED AND REPORTED TO THE PHYSICIAN. PATIENT/CAREGIVER VERBALIZE/DEMONSTRATE MEASURES TO PREVENT FALLS BY EOE: 03/07/2025 Goal Provider Goal - CHANGES IN PATIENT CO-MORBID STATUS WILL BE PROMPTLY IDENTIFIED AND REPORTED TO THE PHYSICIAN. PATIENT/CAREGIVER VERBALIZE/DEMONSTRATE ABILITY TO PROPERLY MANAGE DEPRESSION BY EOE: 03/07/2025 Goal Provider Goal - CHANGES IN PATIENT CO-MORBID STATUS WILL BE PROMPTLY IDENTIFIED AND REPORTED TO THE PHYSICIAN. PATIENT/CAREGIVER VERBALIZE/DEMONSTRATE ABILITY TO PROPERLY MANAGE PAIN BY EOE: 03/07/2025 Reason for Visit [facility]DEPENDENT IN THE COMMUNITY Encounters Start Date/Time End Date/Time Encounter Type Admission Type Attending [facility] Care Department Encounter ID Discharge Date Discharge Status Discharge Condition Discharge Reason Percent Goals Met 2025-01-07 00:00:00 2025-01-25 00:00:00 Outpatient RECERTIFIC ATION VIKKI SCHWARZ [facility] [id number] 1520-10-03 00:00:00 DISCHARGE TO HOME OR SELF CARE INDEPENDEN T IN THE COMMUNITY GOALS MET 100.00
--- OUTSIDE RECORDS SUMMARY | 2025-01-24 19:00 | XMS_ITS | Clinical Summary ---
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 Active 01-04 00:00: 00 PENITENTIARY (CURRENT) USE OF SYSTEMIC STEROIDS Active 01-04 [...] 500 mg tablet 11-08 00:00: 00 Yes [id number] PAIN 2 tablet NEEDED 2 tablet NEEDED (route: oral) Med Classific ation: Analgesic , Anti-infl ammatory or Antipyret ic acyclovir 200 mg capsule 11-08 00:00: 00 Yes [id number] HERPES 1 capsule 2 TIMES DAILY 1 capsule 2 TIMES DAILY (route: oral) Med Classific ation: Anti-Infe ctive Agents allopurinol 100 mg tablet 11-08 00:00: 00 Yes [id number] GOUT 1 tablet DAILY 1 tablet DAILY (route: oral) Med Classific ation: Gout and Hyperuric emia Therapy amoxicillin 500 mg tablet 11-08 00:00: 00 11-09 23:59 :00 No [id number] UTI 1 tablet 3 TIMES DAILY 1 tablet 3 TIMES DAILY (route: oral) Med Classific ation: Anti-Infe ctive Agents cyclosporin e 25 mg capsule 11-08 00:00: 00 Yes [id number] IMMUNOSUPRE SSANT 3 capsule 2 TIMES DAILY 3 capsule 2 TIMES DAILY (route: oral) Med Classific ation: Immunosup pressive Agents Eliquis 5 mg tablet 11-08 00:00: 00 Yes [id number] AFIB 1 tablet EVERY 12 HOURS 1 tablet EVERY 12 HOURS (route: oral) Med Classific ation: Hematolog ical Agents Keppra 250 mg tablet 11-08 00:00: 00 Yes [id number] SEIZURES 3 tablet 2 TIMES DAILY 3 tablet 2 TIMES DAILY (route: oral) Med Classific ation: Central Nervous System Agents metoprolol succinate ER 200 mg tablet,exte nded release 24 hr 11-08 00:00: 00 Yes [id number] HTN 1 tablet DAILY 1 tablet DAILY (route: oral) Med Classific ation: Cardiovas cular Therapy Agents mycophenola te mofetil 500 mg tablet 11-08 00:00: 00 Yes [id number] KIDNEY TRANSPLANT 2 tablet 2 TIMES DAILY 2 tablet 2 TIMES DAILY (route: oral) Med Classific ation: Immunosup pressive Agents omeprazole 20 mg capsule,del ayed release 11-08 00:00: 00 Yes [id number] GERD 1 capsule DAILY 1 capsule DAILY (route: oral) Med Classific ation: Gastroint estinal Therapy Agents ondansetron 4 mg disintegrat ing tablet 11-08 00:00: 00 Yes [id number] NAUSEA AND VOMITING 1 tablet NEEDED 1 tablet NEEDED (route: oral) Med Classific ation: Gastroint estinal Therapy Agents pravastatin 80 mg tablet 11-08 00:00: 00 Yes [id number] CHOLESTEROL 1 tablet DAILY 1 tablet DAILY (route: oral) Med Classific ation: Cardiovas cular Therapy Agents prednisone 5 mg tablet 11-08 00:00: 00 Yes [id number] STERIOD 1 tablet DAILY 1 tablet DAILY (route: oral) Med Classific ation: Endocrine Refresh Tears 0.5 % eye drops 11-08 00:00: 00 11-08 23:59 :00 No [id number] DRY EYES 1 drops 4 TIMES DAILY 1 drops 4 TIMES DAILY (route: ophthalmic (eye)) Med Classific ation: Ophthalmi c Agents sennosides 8.6 mg-docusate sodium 50 mg tablet 11-08 00:00: 00 Yes [id number] CONSTIPATIO N 1 tablet 2 TIMES DAILY 1 tablet 2 TIMES DAILY (route: oral) Med Classific ation: Gastroint estinal Therapy Agents tamsulosin 0.4 mg capsule 11-08 00:00: 00 Yes [id number] URINARY RETENTION 1 capsule DAILY 1 capsule DAILY (route: oral) Med Classific ation: Genitouri nary Therapy trazodone 50 mg tablet 11-08 00:00: 00 12-07 23:59 :00 No [id number] SLEEP 1 tablet DAILY 1 tablet DAILY (route: oral) Med Classific ation: Central Nervous System Agents venlafaxine ER 150 mg capsule,ext ended release 24 hr 11-08 00:00: 00 Yes [id number] ADHD 1 capsule DAILY 1 capsule DAILY (route: oral) Med Classific ation: Central Nervous System Agents amoxicillin 500 mg capsule 11-12 00:00: 00 11-19 23:59 :00 No [id number] UTI 1 capsule 3 TIMES DAILY 1 capsule 3 TIMES DAILY (route: oral) Med Classific ation: Anti-Infe ctive Agents cephalexin 500 mg capsule 12-11 00:00: 00 12-25 23:59 :00 No [id number] WOUND INFECTION 1 capsule 2 TIMES DAILY [...] MALIGNANT NEOPLASM OF SKIN EXACERBATION: 11/08/2024 Z79.01 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 HOME HEALTH AGENCY MAY ACCEPT ORDERS FROM THE FOLLOWING PHYSICIANS AND THEIR ASSOCIATES: MARTHA RASCON, DONY ROBERTSON, PINEDA VEGA, PAULINA ESTRADA, GERRY FIERRO EMERGENCY PREPAREDNESS PLAN: REVIEWED EMERGENCY PREPAREDNESS PLAN, CLIENT WILL EVACUATE TO ALF IN PLACE EVACUATION PLAN IN THE EVENT [...] IS HEALED AND BP IS WELL MANAGED [facility] 10 SCORE- 5 PLEASE NOTE IF [...] MALIGNANT NEOPLASM OF SKIN EXACERBATION: 11/08/2024 Z79.01 PENITENTIARY (CURRENT) USE OF ANTICOAGULANTS EXACERBATION: 11/08/2024 Z79.52 PENITENTIARY (CURRENT) USE OF SYSTEMIC STEROIDS EXACERBATION: 11/08/2024 AND OTHER CONDITIONS THAT PRESENT THEMSELVES DURING THE COURSE OF THIS EPISODE TO IDENTIFY CHANGES AND INTERVENE TO MINIMIZE COMPLICATIONS. HOME HEALTH AGENCY MAY ACCEPT ORDERS FROM THE FOLLOWING PHYSICIANS AND THEIR ASSOCIATES: MARTHA RASCON, DONY ROBERTSON, PINEDA VEGA, PAULINA ESTRADA, GERRY FIERRO EMERGENCY PREPAREDNESS PLAN: REVIEWED EMERGENCY PREPAREDNESS PLAN, CLIENT WILL EVACUATE TO ALF IN PLACE EVACUATION PLAN IN THE EVENT [...] IS HEALED AND BP IS WELL MANAGED [facility] 10 SCORE- 5 PLEASE NOTE IF [...] End Date/Time Encounter Type Admission Type Attending [facility] Care Department Encounter ID Discharge Date Discharge Status Discharge Condition Discharge Reason Percent Goals Met 2025-01-07 00:00:00 2025-01-25 00:00:00 Outpatient RECERTIFIC ATION VIKKI SCHWARZ [facility] [id number] 7146-10-03 00:00:00 DISCHARGE TO HOME OR SELF CARE INDEPENDEN T IN THE COMMUNITY GOALS MET 100.00
--- OUTSIDE RECORDS SUMMARY | 2025-01-24 19:00 | XMS_ITS | Clinical Summary ---
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 01-04 00:00: 00 USP (CURRENT) USE OF SYSTEMIC STEROIDS Active 01-04 [...] 500 mg tablet 11-08 00:00: 00 Yes [id number] PAIN 2 tablet NEEDED 2 tablet NEEDED (route: oral) Med Classific ation: Analgesic , Anti-infl ammatory or Antipyret ic acyclovir 200 mg capsule 11-08 00:00: 00 Yes [id number] HERPES 1 capsule 2 TIMES DAILY 1 capsule 2 TIMES DAILY (route: oral) Med Classific ation: Anti-Infe ctive Agents allopurinol 100 mg tablet 11-08 00:00: 00 Yes [id number] GOUT 1 tablet DAILY 1 tablet DAILY (route: oral) Med Classific ation: Gout and Hyperuric emia Therapy amoxicillin 500 mg tablet 11-08 00:00: 00 11-09 23:59 :00 No [id number] UTI 1 tablet 3 TIMES DAILY 1 tablet 3 TIMES DAILY (route: oral) Med Classific ation: Anti-Infe ctive Agents cyclosporin e 25 mg capsule 11-08 00:00: 00 Yes [id number] IMMUNOSUPRE SSANT 3 capsule 2 TIMES DAILY 3 capsule 2 TIMES DAILY (route: oral) Med Classific ation: Immunosup pressive Agents Eliquis 5 mg tablet 11-08 00:00: 00 Yes [id number] AFIB 1 tablet EVERY 12 HOURS 1 tablet EVERY 12 HOURS (route: oral) Med Classific ation: Hematolog ical Agents Keppra 250 mg tablet 11-08 00:00: 00 Yes [id number] SEIZURES 3 tablet 2 TIMES DAILY 3 tablet 2 TIMES DAILY (route: oral) Med Classific ation: Central Nervous System Agents metoprolol succinate ER 200 mg tablet,exte nded release 24 hr 11-08 00:00: 00 Yes [id number] HTN 1 tablet DAILY 1 tablet DAILY (route: oral) Med Classific ation: Cardiovas cular Therapy Agents mycophenola te mofetil 500 mg tablet 11-08 00:00: 00 Yes [id number] KIDNEY TRANSPLANT 2 tablet 2 TIMES DAILY 2 tablet 2 TIMES DAILY (route: oral) Med Classific ation: Immunosup pressive Agents omeprazole 20 mg capsule,del ayed release 11-08 00:00: 00 Yes [id number] GERD 1 capsule DAILY 1 capsule DAILY (route: oral) Med Classific ation: Gastroint estinal Therapy Agents ondansetron 4 mg disintegrat ing tablet 11-08 00:00: 00 Yes [id number] NAUSEA AND VOMITING 1 tablet NEEDED 1 tablet NEEDED (route: oral) Med Classific ation: Gastroint estinal Therapy Agents pravastatin 80 mg tablet 11-08 00:00: 00 Yes [id number] CHOLESTEROL 1 tablet DAILY 1 tablet DAILY (route: oral) Med Classific ation: Cardiovas cular Therapy Agents prednisone 5 mg tablet 11-08 00:00: 00 Yes [id number] STERIOD 1 tablet DAILY 1 tablet DAILY (route: oral) Med Classific ation: Endocrine Refresh Tears 0.5 % eye drops 11-08 00:00: 00 11-08 23:59 :00 No [id number] DRY EYES 1 drops 4 TIMES DAILY 1 drops 4 TIMES DAILY (route: ophthalmic (eye)) Med Classific ation: Ophthalmi c Agents sennosides 8.6 mg-docusate sodium 50 mg tablet 11-08 00:00: 00 Yes [id number] CONSTIPATIO N 1 tablet 2 TIMES DAILY 1 tablet 2 TIMES DAILY (route: oral) Med Classific ation: Gastroint estinal Therapy Agents tamsulosin 0.4 mg capsule 11-08 00:00: 00 Yes [id number] URINARY RETENTION 1 capsule DAILY 1 capsule DAILY (route: oral) Med Classific ation: Genitouri nary Therapy trazodone 50 mg tablet 11-08 00:00: 00 12-07 23:59 :00 No [id number] SLEEP 1 tablet DAILY 1 tablet DAILY (route: oral) Med Classific ation: Central Nervous System Agents venlafaxine ER 150 mg capsule,ext ended release 24 hr 11-08 00:00: 00 Yes [id number] ADHD 1 capsule DAILY 1 capsule DAILY (route: oral) Med Classific ation: Central Nervous System Agents amoxicillin 500 mg capsule 11-12 00:00: 00 11-19 23:59 :00 No [id number] UTI 1 capsule 3 TIMES DAILY 1 capsule 3 TIMES DAILY (route: oral) Med Classific ation: Anti-Infe ctive Agents cephalexin 500 mg capsule 12-11 00:00: 00 12-25 23:59 :00 No [id number] WOUND INFECTION 1 capsule 2 TIMES DAILY [...] MALIGNANT NEOPLASM OF SKIN EXACERBATION: 11/08/2024 Z79.01 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 HOME HEALTH AGENCY MAY ACCEPT ORDERS FROM THE FOLLOWING PHYSICIANS AND THEIR ASSOCIATES: MARTHA RASCON, DONY ROBERTSON, PINEDA VEGA, PAULINA ESTARDA, GERRY FIERRO EMERGENCY PREPAREDNESS PLAN: REVIEWED EMERGENCY PREPAREDNESS PLAN, CLIENT WILL EVACUATE TO JAIL IN PLACE EVACUATION PLAN IN THE EVENT [...] IS HEALED AND BP IS WELL MANAGED [facility] 10 SCORE- 5 PLEASE NOTE IF SCORE [...] MALIGNANT NEOPLASM OF SKIN EXACERBATION: 11/08/2024 Z79.01 USP (CURRENT) USE OF ANTICOAGULANTS EXACERBATION: 11/08/2024 Z79.52 USP (CURRENT) USE OF SYSTEMIC STEROIDS EXACERBATION: 11/08/2024 AND OTHER CONDITIONS THAT PRESENT THEMSELVES DURING THE COURSE OF THIS EPISODE TO IDENTIFY CHANGES AND INTERVENE TO MINIMIZE COMPLICATIONS. HOME HEALTH AGENCY MAY ACCEPT ORDERS FROM THE FOLLOWING PHYSICIANS AND THEIR ASSOCIATES: MARTHA RASCON, DONY ROBERTSON, PINEDA VEGA, PAULINA ESTRADA, GERRY FIERRO EMERGENCY PREPAREDNESS PLAN: REVIEWED EMERGENCY PREPAREDNESS PLAN, CLIENT WILL EVACUATE TO JAIL IN PLACE EVACUATION PLAN IN THE EVENT [...] IS HEALED AND BP IS WELL MANAGED [facility] 10 SCORE- 5 PLEASE NOTE IF SCORE [...] End Date/Time Encounter Type Admission Type Attending [facility] Care Department Encounter ID Discharge Date Discharge Status Discharge Condition Discharge Reason Percent Goals Met 2025-01-07 00:00:00 2025-01-25 00:00:00 Outpatient RECERTIFIC ATION VIKKI SCHWARZ [facility] [id number] 00:00:00 DISCHARGE TO HOME OR SELF CARE INDEPENDEN T IN THE COMMUNITY GOALS MET 100.00
--- OUTSIDE RECORDS SUMMARY | 2025-02-14 13:30 | XMS_ITS | Encounter Summary ---
Author Organization [place] Address [facility] [place] [address] Care Team Providers Care Shirt Bander Name Role Phone Good Ramirez MD Unavailable [phone] [facility] Primary Care Provider Moises Hall MD Unavailable [phone] Fatou De Leon PA-C Unavailable [phone] Sindi Magdaleno GC Unavailable [phone] Reason for Referral * Consultation (Routine: Next available opening) - Pending Review Specialty Diagnoses / Procedures Referred By Contac t Referred To Contact Diagnoses Partial epilepsy, with impairment of consciousness, with intractable epilepsy (H) Moises Hall MD [address] [facility] [address] [place] [address] Phone: tel: fax: Referral ID Status Reason Start Date Expiration Date V isits Requested Visits Authorized [id number] Pending Review 02/14/2025 02/14/2026 1 1 Question Answer Reason for Referral: Sleep Apnea Scheduling Instructions: [facility] will call you to coordinate your care as prescribed by your provider. If you don't hear from a pharmaceutical specialty representative within 2 business days, please call [phone]. Additional Information: patient with severe sleep LUIZA, intolerant of CPAP, Afib and multiple other medical problems. Please eval for INSPIRE Comments Please be aware that coverage of these services is subject to the terms and limitations of your health insurance plan. Call member services at your health plan with any benefit or coverage questions. [facility] will call you to coordinate your care as prescribed by your provider. If you don't hear from a pharmaceutical specialty representative within 2 business days, please call [phone]. * (Routine) - Pending Review Specialty Diagnoses / Procedures Referred By Contac t Referred To Contact Diagnoses Partial epilepsy, with impairment of consciousness, with intractable epilepsy (H) Procedures Keppra (Levetiracetam) Level Moises Hall MD [address] [facility] [address] [place] [address] Phone: tel: fax: Referral ID Status Reason Start Date Expiration Date V isits Requested Visits Authorized [id number] Pending Review 02/14/2025 02/14/2026 1 1 Reason for Visit * Reason Comments Follow Up Encounter Details Date Type Department Care Team (Late st Contact Info) Description 02/14/2025 1:30 PM CDT Virtual Visit [facility] [address], [address] [place] [address] Moises Hall MD [address] 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 Please present these to your local clinic to get the blood work drawn. Your local clinic is not in the [employer] system and so will not communicate these results to us. Wewill often not have access to these results digitally either. To make sure we have access to the results you need to do two things: 1) Call us after the blood work is done. 2) Tell us date blood work was done, location of the clinic, and the telephone number of the clinic. We can then make the appropriate calls and try to track the results down. I know you have many medical problems and see a lot of Doctors. We have asked the Sleep Doctors to see you as well to determine whether you may be a candidate for the Inspire device which could help your sleep apnea without requiring CPAP use. Controlling your sleep apnea would help with the Afib and improve your quality of life. documented in this encounter Progress Notes * Moises Hall MD - 02/14/2025 1:30 PM CDT Virtual Visit Details Originating Location (pt. Location): Home Distant Location (provider location): On-site Platform used for Video Visit: [facility] Progress Note Patient: Kannan Good : 1960 Age: [age] year old Today's Office Visit: 02/14/2025 Epilepsy Data: Seizure Record Current Visit Date: 02/14/25 Previous Visit Date: 09/27/23 Months since last visit: 16.62 Seizure Type 1: Simple partial seizures with psychic symptoms Description of Sz Type 1: undescribable sensation life fast forward # of Type 1 Seizure since last visit: 0 Freq. Type 1 / Month: 0 Seizure Type 2: Simple partial onset followed by impairment of consciousness Description of Sz Type 2: above followed by impairment # of Type 2 Seizure since last visit: 0 Freq. Type 2 / Month: 0 Background History: Multiple medical problems including polycystic kidney disease, status post bilat nephrectomy, status post kidney transplant with mild renal failure. 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 Late 2013 with two CPS, levetiracetam initiated with improvement; increased to 1000 mg per day (creat = 1.63). History of Present Illness: No seizures. Last seizure August 2017. Current Outpatient Medications Medication Sig Dispense Refill acyclovir (ZOVIRAX) 200 MG capsule Take 200 mg by mouth 2 times daily. albuterol (PROAIR HFA/PROVENTIL HFA/VENTOLIN HFA) 108 (90 Base) MCG/ACT inhaler Inhale 2 puffs intothe lungs every 6 hours as needed for shortness of breath, wheezing or cough. 18 g 0 allopurinol (ZYLOPRIM) 100 MG tablet Take 100 mg by mouth every morning cycloSPORINE modified (GENERIC EQUIVALENT) 25 MG capsule Take 75 mg by mouth 2 times daily levETIRAcetam (KEPPRA) 250 MG tablet TAKE THREE TABLETS TWICE DAILY. 180 tablet 2 metoprolol succinate ER (TOPROL XL) 100 MG 24 hr tablet Take 150 mg by mouth daily mycophenolate (GENERIC EQUIVALENT) 500 MG tablet Take 1,000 mg by mouth 2 times daily omeprazole (PRILOSEC) [address] capsule Take 20 mg by mouth every evening pravastatin (PRAVACHOL) 80 MG tablet Take 80 mg by mouth At Bedtime predniSONE (DELTASONE) 5 MG tablet Take 5 mg by mouth daily acetaminophen (TYLENOL) 325 MG tablet Take 325-650 mg by mouth every 6 hours as needed for mild pain (Patient not taking: Reported on 06/24/2023) Alcohol Swabs PADS Use to swab the area of the injection or farida as directed Per insurance coverage (Patient not taking: Reported on 08/26/2022) 100 each 0 aspirin 81 MG EC tablet Take 81 mg by mouth daily (Patient not taking: Reported on 02/14/2025) blood glucose (NO BRAND SPECIFIED) lancets standard To use to test glucose level in the blood Use to test blood sugar 4 times daily as directed. To accompany glucose monitor brands per insurance coverage. (Patient not taking: Reported on 08/26/2022) 200 each 0 blood glucose (NO BRAND SPECIFIED) test strip Use to test blood sugar 4 times daily as directed. Toaccompany glucose monitor brands per insurance coverage. (Patient not taking: Reported on 08/26/2022)200 strip 0 blood glucose monitoring (NO BRAND SPECIFIED) meter device kit Use as directed Per insurance coverage (Patient not taking: Reported on 08/26/2022) 1 kit 0 buPROPion (WELLBUTRIN XL) 150 MG 24 hr tablet Take 150 mg by mouth daily (Patient not taking: Reported on 08/26/2022) insulin pen needle (32G X 4 MM) 32G X 4 MM miscellaneous Use pen needles daily with NPH and Novologinjections. (Patient not taking: Reported on 12/09/2020) 200 each 0 sertraline (ZOLOFT) 100 MG tablet 100 MG ORALLY EVERY DAY (Patient not taking: Reported on 06/24/2023) Medication Notes: Denies side effects. Patient reports he is on DOAC but does not know name. AED Medication Compliance: compliant all of the time Using a pill box: fills out series of edson cups every week since this is easier for him. Review of Systems: No vomiting, diarrhea, fevers, hematuria or kidney stones. Have you experienced a traumatic fall since your last visit: NO Are these falls related to your seizures: Not Applicable Other Issues: Reports basal and squamous skin cancer were diagnosed and are being treated. Mohs surgery planned. No difficulties with kidney transplant. Recent admission for UTI and pyelonephritis of transplanted kidney. Chart notes indicate nephrolithiasis in last year. Sleep is moderately disrupted because of diffuse pain. Still not tolerating CPAP. Reports chronic sleepiness, falls asleep when sits down. Chronic Afib. Chronic knee pain but TKR put off because considered high risk due to multiple medical conditions. Is patient safe to drive: Yes from perspective of seizures. Drives rarely; states he has no troublestaying awake while driving. Exam: There were no vitals taken for this visit. Wt Readings from Last 5 Encounters: 06/27/25 250 lb (113.4 kg) 10/10/24 257 lb 8 oz (116.8 kg) 10/08/24 258 lb 13.1 oz (117.4 kg) 01/16/24 250 lb (113.4 kg) 09/27/23 250 lb (113.4 kg) Awake throughout visit. Pleasant and cooperative. Normal language. Normal thought content. Thick neck. EOMI. No nystagmus. Normal smooth pursuit. Smile symmetrical. Tongue midline. No drift, pronatoin, or tremor. FFN is done well. Rapid fine movements done well. No asterixis. IMPRESSION: 1. Focal seizures, no longer intractable; mostly focal aware seizures, occasional focal aware to focal impaired, temporal lobe origin. Etiology unclear, but normal MRI. 2. Seizures under excellent control with renal doses of levetiracetam (1500 mg per day). None for more than seven years. However persistent seizures for at least 30 years previously. Given severity of previous epilepsy and overall fragile state probably requires ongoing treatment. 3. Multiple medical problems. Symptomatic LUIZA, neuropathy, chronic pain that appears to be mostly orthopedic. Afib, recurrent pyelonephritis, nephrolithiasis. Significant fatigue probably related to untreated LUIZA and multiple medical conditions. Again reviewed that one possible contributor are higher levetiracetam levels given possible progression of renal disease. He is not aware of AED levels or creatinine being done since Jan 2022. 4. Depression improved on venlafaxine; this supports our previous thoughts that levetiracetam not responsible for depression. Under active psychiatric care and seeing psychotherapist. PLAN: 1. Continue current levetiracetam dose. Refilled x one year today. 2. Urged levetiracetam level at local clinic. We will send request; emphasized that he needs to call us after this is done. We had suggested this a year ago but cannot find results in [facility] Everywhere[facility] in [facility] labs. Strongly encouraged continued follow up with psychiatry, primary care, and transplant team. 3. Urged further consideration of Inspire device to help with uncontrolled sleep apnea; patient stated that he would pursue. We had also raised this at last visit. 4. If seizures worsen and optiimizing levetiracetam does not improve the situation, transition to lamotrigine or oxcarbazepine could be contemplated. 3. RTC 1 year. Call if worsening seizures. Total time on video today 25 min. Additional 6 min reviewing chart prior to visit. Additional 7 mincoordinating care and generating note following visit. Total time 38 min on day of visit. The longitudinal plan of care for this patient's epilepsy (including epilepsy comorbidities if appropriate) was addressed during this visit. Due to the added complexity in care, I will continue to support thispatient in the subsequent management of this condition(s) and with the ongoing continuity of care of this condition(s). Moises Hall MD documented in this encounter Plan of Treatment Scheduled Orders Name Type Priority Associated Diagnoses Orde r Schedule Keppra (Levetiracetam) Level Lab Routine Partial epilepsy, with impairment of consciousness, with intractable epilepsy (H) Expected: 02/14/2025 (Approximate), Expires: 02/14/2026 Scheduled Referrals Name Type Priority Associated Diagnoses Orde r Schedule Adult Sleep Eval & Management Bundle Wrapper Referral Referral Routine: Next available opening Partial epilepsy, with impairment of consciousness, with intractable epilepsy (H) Expected: 02/14/2025 (Approximate), Expires: 02/14/2026 documented as of this encounter Visit Diagnoses Diagnosis Partial epilepsy, with impairment of consciousness, with intractable epilepsy (H) Localization-related (focal) (partial) epilepsy and epileptic syndromes with complex partial seizures, with intractable epilepsy documented in this encounter Additional Health Concerns Infection Onset Date Last Indicated Resolved Time 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/08/2024 10/08/2024 Assessment Noted Time PHQ-9 Depression Total Score: 24 023 12:13 PM CDT documented as of this encounter Care Teams Shirt Bander Relationship Specialty Start Date End Date [facility], [address] [address] PCP - General 12/24/21 Good Ramirez MD [facility] [id number] [place] [address] [address] [place] [address] Psychiatrist Psychiatry 01/02/20 Moises Hall MD [address] [facility] [address] [place] [address] Assigned Neuroscience Provider 09/04/22 Fatou De Leon PA-C [address] [facility] [address] [place] [address] Physician Curb Supervisor Urology 01/26/23 Sindi Magdaleno GC [address] [place], [place] [address] Genetic Counselor 06/21/23 documented as of this encounter
--- OUTSIDE RECORDS SUMMARY | 2025-02-21 00:08 | XMS_ITS | Clinical Summary ---
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 Gender Identity Not on file Sexual Orientation Not on file Plan of Treatment Health Maintenance Due Date Last Done Comments Tetanus booster 1969 Depression screening for age 12+ 1970 BMI (ht and wt on same day) for age 18+ 1976 Hepatitis C screening for ag e 18-79 1976 Colonoscopy through age 75 12/22/2003 Lipids for age 45-75 12/22/2003 Pneumococcal series for age 50+ (1 of 1 - PCV) 2008 Zoster (shingles) series for age 50+ (1 of 2) 2008 Influenza Vaccine (#1) 2024 RSV vaccine for adults or (1 - 1-dose 75+ series) 2033 Hepatitis B series for 19+ Aged Out N o longer eligible based on patient's age to complete this topic Insurance [place] ONLY Care Teams Propeller Mechanic Relationship Specialty Start Date End Date Neeraj Duron MD PCP - General Family Practice 12/20/13
--- OUTSIDE RECORDS SUMMARY | 2025-02-21 00:09 | XMS_ITS | Clinical Summary ---
Author Organization [facility] Address [address] [place] [address] Care Team Providers Care Papier Mache Molder Name Role Phone Good Ramirez MD Unavailable [phone] [facility] Primary Care Provider Moises Hall MD Unavailable [phone] Fatou De Leon PA-C Unavailable [phone] Sindi Magdaleno GC Unavailable [phone] Allergies Active Allergy Reactions Criticality Noted Date Comments Dairy Digestive High 09/17/2020 Other reaction(s): bad GI syptoms and headaches Gluten Meal Other (See Comments),Muscle Pain (Myalgia),GI Disturbance 01/04/2017 Ibuprofen High 10/08/2020 Other reaction(s): due to kidney transplant Lactose 07/21/2020 Tolerates Promote Tube Feeding. Mold Other (See Comments) 01/25/2011 Leg swelling, bloating Nsaids High 07/10/2015 Other reaction(s): Renal Failure Transplant 09/16/2011 Yeast (Saccharomyces Cerevisiae) Other (See Comments) 01/25/2011 Leg swelling, bloating Medications omeprazole (PRILOSEC) [address] capsule Take 20 mg by mouth every evening Active allopurinol (ZYLOPRIM) 100 MG tablet Take 100 mg by mouth every morning Active acyclovir (ZOVIRAX) 200 MG capsule Take 200 mg by mouth 2 times daily. 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, with intractable epilepsy,FHx: aneurysm Take 5 mg by mouth daily Active mycophenolate (GENERIC EQUIVALENT) 500 MG tablet Take 1,000 mg by mouth 2 times daily Active blood glucose monitoring (NO BRAND SPECIFIED) meter device kitIndications: Type 2 diabetes mellitus with hyperglycemia, without long-term current use of insulin (H) Use as directed Per insurance coverage 1 kit 1 Active Additional Information Patient not taking.Reported on 08/26/2022 blood glucose (NO BRAND SPECIFIED) test stripIndication s:Type 2 diabetes mellitus with hyperglycemia, without long-term current use of insulin (H) Use to test blood sugar 4 times daily as directed. To accompany glucose monitor brands per insurance coverage. 200 strip 1 Active Additional Information Patient not taking.Reported on 08/26/2022 blood glucose (NO BRAND SPECIFIED) lancets standardIndicat ions:Type 2 diabetes mellitus with hyperglycemia, without long-term current use of insulin (H) To use to test glucose level in the blood Use to test blood sugar 4 times daily as directed. To accompany glucose monitor brands per insurance coverage. 200 each 1 Active Additional Information Patient not taking.Reported on 08/26/2022 Alcohol Swabs PADSIndications :Type 2 diabetes mellitus with hyperglycemia, without long-term current use of insulin (H) Use to swab the area of the injection or farida as directed Per insurance coverage 100 each 1 Active Additional Information Patient not taking.Reported on 08/26/2022 insulin pen needle (32G X 4 MM) 32G X 4 MM miscellaneousIn dications:Type 2 diabetes mellitus with hyperglycemia, without long-term current use of insulin (H) Use pen needles daily with NPH and Novolog injections. 200 each 1 Active Additional Information Patient not taking.Reported on 12/09/2020 acetaminophen (TYLENOL) 325 MG tablet Take 325-650 mg by mouth every 6 hours as needed for mild pain Active buPROPion (WELLBUTRIN XL) 150 MG 24 hr tablet Take 150 mg by mouth daily 2 Active metoprolol succinate ER (TOPROL XL) 100 MG 24 hr tablet Take 150 mg by mouth daily 2 Active aspirin 81 MG EC tablet Take 81 mg by mouth daily Active pravastatin (PRAVACHOL) 80 MG tablet Take 80 mg by mouth At Bedtime 2 Active cycloSPORINE modified (GENERIC EQUIVALENT) 25 MG capsule Take 75 mg by mouth 2 times daily 2 Active sertraline (ZOLOFT) 100 MG tablet 100 MG ORALLY EVERY DAY 3 Active albuterol (PROAIR HFA/PROVENTIL HFA/VENTOLIN HFA) 108 (90 Base) MCG/ACT inhaler Inhale 2 puffs into the lungs every 6 hours as needed for shortness of breath, wheezing or cough. 18 g 4 Active levETIRAcetam (KEPPRA) 250 MG tabletIndicatio ns:Partial epilepsy, with impairment of consciousness, with intractable epilepsy (H) Take three tablets twice daily. 540 tablet 3 5 Active levETIRAcetam (KEPPRA) 250 MG tabletIndicatio ns:Partial epilepsy, with impairment of consciousness, with intractable epilepsy (H) TAKE THREE TABLETS TWICE DAILY. 180 tablet 2 5 025 Discontin ued(Reord er (No AVS)) Active Problems Problem Noted Date Diagnosed Date ANNALISE (acute kidney injury) 12/24/2021 Chest pain, unspecified type 12/24/2021 Critical illness myopathy 08/26/2020 Shortness of breath 07/17/2020 Dehydration 07/17/2020 Atrial fibrillation with RVR 07/17/2020 Acute kidney injury 07/17/2020 Acute respiratory failure with hypoxia 1 Pneumonia due to 2019 novel coronavirus 07/18/19 21 Hypoxia 06/27/2020 Other specified disorder of male genital organs( 608.89) 08/13/2014 Partial epilepsy with impair ment of consciousness, intractable 03/12/2014 Overview (02/10/2015): Multiple medical problems including polycystic kidney disease, status post bilat nephrectomy, status post kidney transplant with mild renal failure. 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 Late 2013 with two CPS, levetiracetam initiated with improvement; increased to 1000 mg per day (creat = 1.63). Pulmonary vascular congestion 01/27/2011 RAMOS (dyspnea on exertion) 01/27/2011 ESRD on hemodialysis 01/27/2011 HTN (hypertension) 01/27/2011 Obstructive sleep apnea 01/27/2011 Encounters Date Type Department Care Team Description 02/14/2025 1:30 PM CDT Virtual Visit [facility] [address], [address] [place] [address] Moises Hall MD Partial epilepsy, with impairment of consciousness, with intractable epilepsy (H) from Last 3 Months Immunizations Immunization Administration Dates Next Due Flu, Unspecified 02/08/2012,12/29/2010 X1d2-10 Novel Flu 02/27/2009 Hepatitis B, Adult (Energix-B/Recombivax HB) 08/2008 Influenza (prior to 2023) 01/24/2013,01/24/2011 Mantoux Tuberculin Skin Test 05/18/2011,05/06/19 11 Pneumo Conj 13-V (2010&after) 01/05/2018 Pneumococcal 23 valent 02/26/2013,01/24/2008 TDAP (Adacel,Boostrix) 11/27/2008 Family History Medical History Relation Comments Parkinsonism Father Polycystic Kidney Diease Maternal Grandmother au topsy Aneurysm Mother Hypertension Mother Polycystic Kidney Diease Mother Squamous cell carcinoma Mother cause of Lung Cancer Paternal Aunt 1 Lung Cancer Paternal Aunt 3 Myocardial Infarction Paternal Grandfather Diabetes Paternal Grandmother Relation Status Comments Brother Alive normal imaging Father Alive Maternal Aunt 1 Maternal Aunt 2 Maternal Aunt 3 Alive Maternal Grandfather (Age 85) Maternal Grandmother (Age 80s) Maternal Uncle Mother Niece 1 Alive Niece 2 Alive Niece 3 Alive Other 1 Alive Other 2 Alive Paternal Aunt 1 Paternal Aunt 2 (Age 90s) old age Paternal Aunt 3 Paternal Grandfather (Age 80s) Paternal Grandmother (Age 80s) Sister Alive normal imaging Son Alive no imaging Social History Tobacco Use Types Packs/Day Years Used Date Smoking Tobacco: Never Passive Smoke Exposure: Never Smokeless Tobacco: Never Tobacco Cessation:Counseling Given: Not Answered Alcohol Use Standard Drinks/Week Comments No 0 (1 standard drink = 0.6 oz pur e alcohol) PHQ-2 Answer Date Recorded PHQ-2 Score 0 09/27/2023 Adolescent Education Answer Date Record ed Getting School Help Needed Not on file 01/22 Sex and Gender Information Value Date Recorded Sex Assigned at Male 01/01/2020 8:30 AM CDT 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 Gender Identity Male 01/01/2020 8:30 AM CDT Sexual Orientation Straight 01/01/2020 8: 30 AM CDT Last Filed Vital Signs Vital Sign Reading Time Taken Comments Blood Pressure 128/101 10/19/2024 4:30 AM CDT Pulse 117 10/19/2024 4:30 AM CDT Temperature 36.4 C (97.5 F) 10/19/2024 2:49 AM CDT Respiratory Rate 18 10/19/2024 4:30 AM CDT Oxygen Saturation 96% 10/19/2024 4:30 AM CDT Inhaled Oxygen Concentration - - Weight 113.4 kg (250 lb) 10/19/2024 2:49 AM CDT Height 180.3 cm (5' 11) 10/10/2024 8:08 AM CDT Body Mass Index 34.87 10/10/2024 8:08 AM CDT Plan of Treatment Health Maintenance Due Date Last Done Comments ADVANCE CARE PLANNING 1960 ANNUAL REVIEW OF HM ORDERS 1958 CT COLONOGRAPHY 1958 FLEX SIG 1958 LIPID 1958 PARATHYROID 1958 URIC ACID 1958 sDNA (Cologuard) 1958 RSV VACCINE (1 - Risk 50-74 years 1-dose series) 2008 HEPATITIS B VACCINE (2 of 5 - Risk Dialysis 4-dose series) 12/25/2008 11/27/2008 FIT 01/26/2012 01/25/2011 ZOSTER VACCINE (2 of 2) 05/07/2019 03/12/2019 COLONOSCOPY 03/05/2021 03/05/2011 COLORECTAL CANCER SCREENING 03/05/2021 PNEUMOCOCCAL VACCINE 50+ YEARS (4 of 4 - PCV20 or PCV21) 01/05/2023 01/05/2018, 02/26/2013, 01/24/2008, Additional history exists FALL RISK ASSESSMENT 12/22/2023 MEDICARE ANNUAL WELLNESS VISIT 12/22/2023 PHQ-2 (once per calendar year) 2024 09/27/2023, 08/26/2022, 08/26/2022, Additional history exists COVID-19 VACCINE ( season) 2024 02/29/2024, 12/20/2022, 05/26/2022, Additional history exists INFLUENZA VACCINE (#1) 2024 , 01/19/2023, 02/11/2022, Additional history exists BMP 01/19/2025 10/19/2024, 09/23, 01/16/2024, Additional history exists HEMOGLOBIN 04/20/2025 10/19/2024, 09/23, 01/16/2024, Additional history exists DIABETES SCREENING 10/20/2027 10/19/2024, 0 10/08/2024, 01/16/2024, Additional history exists DTAP/TDAP/TD VACCINE (3 - Td or Tdap) 10/30/2029 10/31/2019, 11/27/2008 HEPATITIS C SCREENING Completed 10/14/2009 PHOSPHORUS Completed 08/22/2020, 07/25, 08/20/2020, Additional history exists ALK PHOS Completed 09/15/2020, 08/24, 09/08/2020, Additional history exists HPV VACCINE (No Doses Required) Completed MENINGITIS VACCINE Aged Out No longer eligible based on patient's age to complete this topic Procedures Procedure Name Priority Date/Time Associated Diagnosis Comments CBC WITH PLATELETS AND DIFFERENTIAL STAT 10/19/2024 4:02 AM CDT BASIC METABOLIC PANEL STAT 10/19/2024 4:02 AM CDT COMPREHENSIVE METABOLIC PANEL Routine 09/15/2020 6:05 AM CDT Type 2 diabetes mellitus with hyperglycemia, without long-term current use of insulin (H) PHOSPHORUS Routine 08/22/2020 6:26 AM CDT OCCULT BLOOD STOOL STAT 01/25/2011 4: 14 PM CDT from Last 3 Months or Most Recently Relevant to Health Maintenance Results * (ABNORMAL) CBC with platelets and differential (10/19/2024 4:02 AM CDT) WBC Count 10.1 4.0 - 11.0 10e3/uL 10/19/2024 4:11 AM CDT [facility] RBC Count 4.46 4.40 - 5.90 10e6/uL 10/19/2024 4:11 AM CDT [facility] Hemoglobin 15.0 13.3 - 17.7 g/dL 10/19/2024 4:11 AM CDT [facility] Hematocrit 46.3 40.0 - 53.0 % 10/19/2024 4:11 AM CDT [facility] MCV 104(H) 78 - 100 fL 10/19/2024 4:11 AM CDT [facility] MCH 33.6(H) 26.5 - 33.0 pg 10/19/2024 4:11 AM CDT [facility] MCHC 32.4 31.5 - 36.5 g/dL 10/19/2024 4:11 AM CDT [facility] RDW 13.4 10.0 - 15.0 % 10/19/2024 4:11 AM CDT [facility] Platelet Count 233 150 - 450 10e3/uL 10/19/2024 4:11 AM CDT [facility] % Neutrophils 76 % 10/19/2024 4:11 AM CDT [facility] % Lymphocytes 14 % 10/19/2024 4:11 AM CDT [facility] % Monocytes 9 % 10/19/2024 4:11 AM CDT [facility] % Eosinophils 0 % 10/19/2024 4:11 AM CDT [facility] % Basophils 0 % 10/19/2024 4:11 AM CDT [facility] % Immature Granulocytes 1 % 10/19/2024 4:11 AM CDT [facility] NRBCs per 100 WBC 0 <1 /100 025 4:11 AM CDT [facility] Absolute Neutrophils 7.6 1.6 - 8.3 10e3/uL 10/19/2024 4:11 AM CDT [facility] Absolute Lymphocytes 1.4 0.8 - 5.3 10e3/uL 10/19/2024 4:11 AM CDT [facility] Absolute Monocytes 0.9 0.0 - 1.3 10e3/uL 10/19/2024 4:11 AM CDT [facility] Absolute Eosinophils 0.0 0.0 - 0.7 10e3/uL 10/19/2024 4:11 AM CDT [facility] Absolute Basophils 0.0 0.0 - 0.2 10e3/uL 10/19/2024 4:11 AM CDT [facility] Absolute Immature Granulocytes 0.1 <=0.4 10e3/uL 10/19/2024 4:11 AM CDT [facility] Absolute NRBCs 0.0 10e3/uL 10/19/2024 4:11 AM CDT [facility] Blood BLOOD SPECIMEN / Unknown Venipuncture / Unknown 10/19/2024 4:02 AM CDT 10/19/2024 4:05 AM CDT us Tristan Louis MD LAB - BLOOD ORDERABLES Final Result LABORATORY [facility] [address] Lab (1st floor, no room number) [place] [address], [facility] * (ABNORMAL) Basic metabolic panel (10/19/2024 4:02 AM CDT) Sodium 139 135 - 145 mmol/L 10/19/2024 4:27 AM CDT [facility] Potassium 4.8 3.4 - 5.3 mmol/L 10/19/2024 4:27 AM CDT [facility] Chloride 107 98 - 107 mmol/L 10/19/2024 4:27 AM CDT [facility] Carbon Dioxide (CO2) 22 22 - 29 mmol/L 10/19/2024 4:27 AM CDT [facility] Anion Gap 10 7 - 15 mmol/L 10/19/2024 4:27 AM CDT [facility] Urea Nitrogen 33.1(H) 8.0 - 23.0 mg/dL 10/19/2024 4:27 AM CDT [facility] Creatinine 1.77(H) 0.67 - 1.17 mg/dL 10/19/2024 4:27 AM CDT [facility] GFR Estimate 42(L) >60 mL/min/1.7 3m2 10/19/2024 4:27 AM CDT [facility] Comment:eGFR calculated us2020 CKD-EPI equation. Calcium 9.5 8.8 - 10.4 mg/dL 10/19/2024 4:27 AM CDT LAB[facility]ORY Glucose 97 70 - 99 mg/dL 10/19/2024 4:27 AM CDT [facility] Blood BLOOD SPECIMEN / Unknown Venipuncture / Unknown 10/19/2024 4:02 AM CDT 10/19/2024 4:05 AM CDT us Tristan Louis MD LAB - BLOOD ORDERABLES Final Result LAB[facility]ATORY [facility] [address] Lab (1st floor, no room number) [place] [address], [facility] * (ABNORMAL) Comprehensive metabolic panel (09/15/2020 6:05 AM CDT) Sodium 133 133 - 144 mmol/L 09/15/2020 6:42 AM CDT [facility] Potassium 4.4 3.4 - 5.3 mmol/L 09/15/2020 6:42 AM CDT [facility] Chloride 99 94 - 109 mmol/L 09/15/2020 6:42 AM CDT [facility] Carbon Dioxide 26 20 - 32 mmol/L 09/15/2020 6:55 AM CDT [facility] Anion Gap 8 3 - 14 mmol/L 09/15/2020 6:55 AM CDT [facility] Glucose 113(H) 70 - 99 mg/dL 09/15/2020 6:55 AM CDT [facility] Urea Nitrogen 26 7 - 30 mg/dL 09/15/2020 6:55 AM T [facility] Creatinine 1.09 0.66 - 1.25 mg/dL 09/15/2020 6:55 AM T [facility] GFR Estimate 72 >60 mL/min/{1. 73_m2} 09/15/2020 6:55 AM CDT [facility] Comment: Non GFR Calc Starting 04/11/2018, serum creatinine based estimated GFR (eGFR) will be calculated using the Chronic Kidney Disease Epidemiology Collaboration (CKD-EPI) equation. GFR Estimate If Black 84 >60 mL/min/{1. 73_m2} 09/15/2020 6:55 AM T [facility] Comment: GFR Calc Starting 04/11/2018, serum creatinine based estimated GFR (eGFR) will be calculated using the Chronic Kidney Disease Epidemiology Collaboration (CKD-EPI) equation. Calcium 9.6 8.5 - 10.1 mg/dL 09/15/2020 6:55 AM T [facility] Bilirubin Total 0.4 0.2 - 1.3 mg/dL 09/15/2020 6:55 AM [facility] Albumin 3.2(L) 3.4 - 5.0 g/dL 09/15/2020 6:55 AM [facility] Protein Total 7.1 6.8 - 8.8 g/dL 09/15/2020 6:55 AM [facility] Alkaline Phosphatase 141 40 - 150 U/L 09/15/2020 6:55 AM [facility] ALT 31 0 - 70 U/L 09/15/2020 6:55 AM [facility] AST 22 0 - 45 U/L 09/15/2020 6:55 AM [facility] Blood 09/15/2020 6:05 AM CDT 09/15/2020 6:06 AM CDT us Oralia Fish PA-C LAB - BLOOD ORDERABLES Final Result [facility] [address] [address], [facility] [phone] [facility] * Phosphorus (08/22/2020 6:26 AM CDT) Phosphorus 4.2 2.5 - 4.5 mg/dL 08/22/2020 6:51 AM CDT [facility] Blood specimen (specimen) VAD(CVC, PICC) / Unknown 08/22/2020 6:26 AM CDT 08/22/2020 6:33 AM CDT us Demetri Hoang MD LAB - BLOOD ORDERABLES Final Res ult [facility] [address] [address], [facility] [phone] [facility] [address] [address] * Occult blood stool (01/25/2011 4:14 PM CDT) Occult Blood Negative CALLED RESULT TO YOLANDA) ON 01.25.11 @ 1627 BY AN NEG [facility] 01/25/2011 4:14 PM CDT 01/25/2011 4:19 PM CDT us Ivan Quevedo MD LAB - STOOLS ORDERABLES Final Result [facility] [address] [place] [address], [facility] [phone] from Last 3 Months or Most Recently Relevant to Health Maintenance Additional Health Concerns Infection Onset Date Last Indicated MRSA 10/08/2024 10/08/2024 Insurance [facility] MEDICARE UCARE MEDICARE UCARE MEDICARE Advance Directives For more information, please contact: [phone] * Full Code (Latest Code Status on File) Date Activated Date Inactivated Comments 12/24/2021 10:33 AM 12/24/2021 11:36 PM All basic an d advanced life-sustaining interventions are performed as appropriate Question Answer Comments Code status determined by: Discussion with patie nt/ legal decision maker * Full Code Date Activated Date Inactivated Comments 09/15/2020 5:14 PM 12/24/2021 5:00 AM Question Answer Comments Code status determined by: Discussion with patie nt/ legal decision maker * Full Code Date Activated Date Inactivated Comments 08/26/2020 3:18 PM 09/15/2020 5:14 PM All basic and advanced life-sustaining interventions are performed as appropriate Question Answer Comments Code status determined by: Discussion with patie nt/ legal decision maker * Full Code Date Activated Date Inactivated Comments 07/17/2020 6:42 PM 07/19/2020 8:48 PM All basic an d advanced life-sustaining interventions are performed as appropriate Question Answer Comments Code status determined by: Discussion with patie nt/ legal decision maker * Full Code Date Activated Date Inactivated Comments 06/27/2020 1:48 PM 06/28/2020 4:19 PM All basic and advanced life-sustaining interventions are performed as appropriate Question Answer Comments Code status determined by: Discussion with patie nt/ legal decision maker Care Teams Papier Mache Molder Relationship Specialty Start Date End Date Clinic, [address] [address] PCP - General 12/24/21 Good Ramirez MD [facility] [address] [place] [address] Psychiatrist Psychiatry 01/02/20 Moises Hall MD [address] [place], [place] [address] Assigned Neuroscience Provider 09/04/22 Fatou De Leon PA-C [address] [place], [place] [address] Physician Consulting Technical Manager Urology 01/26/23 Sindi Magdaleno GC [address] [place], [place] [address] Genetic Counselor 06/21/23
--- OUTSIDE RECORDS SUMMARY | 2025-02-21 00:09 | XMS_ITS | Encounter Summary ---
Author Organization [facility] Address [address], [place] [address] Care Team Providers Care Gm/Svp Global Publisher Business Name Role Phone Bert Rollins MD Primary Care Provider Unava ilable Encounter Details Date Type Department Care Team (Latest Contact Info) Description 01/24/2025 Orders Only [facility] [place] [address] Social History Tobacco Use Types Packs/Day Years Used Date Smoking Tobacco: Never Smokeless Tobacco: Never Alcohol Use Standard Drinks/Week Comments Not Currently 0 (1 standard drink = 0.6 oz pur e alcohol) Sex and Gender Information Value Date Recorded Sex Assigned at Not on file Legal Sex Male 6:03 AM CDT Gender Identity Not on file Sexual Orientation Not on file documented as of this encounter Plan of Treatment Not on file documented as of this encounter Procedures Procedure Name Priority Date/Time Associated Diagnosis Comments CARDIAC PROCEDURE--SCAN 01/24/2025 documented in this encounter Results * CARDIAC PROCEDURE--SCAN (01/24/2025) us Interface Provider DUMMY/OTHER/AR Final Resu lt documented in this encounter Visit Diagnoses Not on filedocumented in this encounter Care Teams Gm/Svp Global Publisher Business Relationship Specialty Start Date End Date Bert Rollins MD PCP - General 07/26/10 documented as of this encounter
--- OUTSIDE RECORDS SUMMARY | 2025-02-21 00:09 | XMS_ITS ---
Author Organization [facility] ([facility] interaction) Address [address] [place] [address] Care Team Providers Care Stationary Plant Operators Name Role Phone Unavailable Unavailable Unavailable Allergies, Adverse Reactions, Alerts This patient has no known allergies or adverse reactions. Problems This patient has no known problems.
--- OUTSIDE RECORDS SUMMARY | 2025-02-21 00:09 | XMS_ITS | Encounter Summary ---
Author Organization [facility] Address [address], [place] [address] Care Team Providers Care Laborer Hoisting Name Role Phone Bert Rollins MD Primary Care Provider Unava ilable Encounter Details Date Type Department Care Team (Latest Contact Info) Description 01/24/2025 Orders Only [facility] ProviderHung [place] [address] Social History Tobacco Use Types Packs/Day Years [...] Procedure Name Priority Date/Time Associated Diagnosis Comments EKG 01/24/2025 documented in this encounter Results * EKG (01/24/2025) us Interface Provider EKG Final Resu lt documented in this encounter Visit Diagnoses Not on filedocumented in this encounter Care Teams Laborer Hoisting Relationship Specialty Start Date End Date Bert Rollins MD PCP - General 07/26/10 documented as of this encounter
--- OUTSIDE RECORDS SUMMARY | 2025-02-21 00:09 | XMS_ITS | Encounter Summary ---
Author Organization [place] Address [address] [place] [address] Care Team Providers Care Meter Inspector Name Role Phone Neeraj Duron Primary Care Provider [phone] Good Ramirez MD Unavailable [phone] Moises Hall MD Unavailable + [phone] Lincoln Parish MD Unavailable [phone] [facility] Primary Care Provider Moises Hall MD Unavailable + [phone] Fatou De Leon PA-C Unavailable [phone] Sindi Magdaleno GC Unavailable [phone] Encounter Details Date Type Department Care Team (Late st Contact Info) Description 07/11/2020 External Order Results [facility] [address] [place] [address] Outside, Provider Social History Tobacco Use Types Packs/Day Years Used Date Smoking Tobacco: Never Smokeless Tobacco: Never Alcohol Use Standard Drinks/Week Comments No 0 (1 standard drink = 0.6 oz pur e alcohol) PHQ-2 Answer Date Recorded PHQ-2 Score 4 01/01/2020 Sex and Gender Information Value Date Recorded Sex Assigned at Male 01/01/2020 8:30 AM CDT 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 Gender Identity Male 01/01/2020 8:30 AM CDT Sexual Orientation Straight 01/01/2020 8: 30 AM CDT documented as of this encounter Plan of Treatment Not on file documented as of this encounter Procedures Procedure Name Priority Date/Time Associated Diagnosis Comments COVID-19 VIRUS (CORONAVIRUS) BY PCR (EXTERNAL RESULT) Routine 07/11/2020 1:08 PM CDT documented in this encounter Results * (ABNORMAL) COVID-19 Virus (Coronavirus) by PCR (External Result) (07/11/2020 1:08 PM CDT) COVID-19 Virus by PCR (External Result) PRESENT SARSCOV2 RNA(A) ABSENT COVID-19 EXTERNAL RESULTS 07/11/2020 1:08 PM CDT Narrative HEIDI PFT - 07/30/2020 9:31 AM CDT Verified by Efraín Alvarez on 07/30/2020. Performed at [address] [address] [place] Patient Reported LABORATORY Edited Result - Final HEIDI PFLouisa COVID-19 EXTERNAL RESULTS COVID-19 External Result Scanned into Patient Record by VIPAAR Refer to Result Comment/Narrative for [place] [address], [facility] documented in this encounter Visit Diagnoses Not on filedocumented in this encounter Additional Health Concerns Infection Onset Date Last Indicated Resolved Time COVID-19 07/11/2020 07/17/2020 08/07/2020 11:3 9 PM CDT Rule Out COVID-19 07/17/2020 07/17/2020 07/17/2020 2:43 PM CDT COVID-19 Comment:Per ED notes, patient tested positive for COVID on 12/21/21 2021 12/24/2021 01/14/2022 11:39 PM CDT Rule Out COVID-19 12/24/2021 12/24/2021 12/24/2021 7:41 AM CDT Rule Out C-difficile 12/24/2021 12/24/2021 022 10:38 PM CDT Rule Out COVID-19 01/16/2024 01/16/2024 01/16/2024 1:34 PM CDT MRSA 10/08/2024 10/08/2024 Assessment Noted Time PHQ-9 Depression Total Score: 20 020 8:51 AM CDT documented as of this encounter Care Teams Meter Inspector Relationship Specialty Start Date End Date Neeraj Duron [address] [address] PCP - General Family Practice 10/04/17 12/23/21 [facility], [address] [address] PCP - General 12/24/21 Good Ramirez MD [facility] [address] [facility] [address] [place] [address] Psychiatrist Psychiatry 01/02/20 Moises Hall MD [address] [facility] [address] [place], [place] [address] Assigned Neuroscience Provider 02/15/20 06/11/22 [place] Parish MD [address] [place] [address] Assigned Heart and Vascular Provider 10/19/20 04/16/22 Moises Hall MD [address] [facility] [address] [place] [address] Assigned Neuroscience Provider 09/04/22 Fatou DeL eon PA-C [address] [facility] [address] [place] [address] Physician Surgical Instrument Repair Specialist Urology 01/26/23 Sindi Magdaleno GC [address] [facility] [place] [address] Genetic Counselor 06/21/23 documented as of this encounter
--- OUTSIDE RECORDS SUMMARY | 2025-02-21 00:09 | XMS_ITS | Encounter Summary ---
Author Organization [place] Address [facility] [place] [facility]0 [facility] [place] [address] Care Team Providers Care Estimator Binding Name Role Phone Good Ramirez MD Unavailable [facility] Primary Care Provider Moises Hall MD Unavailable Fatou De LeonC Unavailable [phone] Sindi Magdaleno GC Unavailable [phone] Encounter Details Date Type Department Care Team (Late st Contact Info) Description 07/26/2023 MyC Medical Advice [facility] [address] [facility] [address] [address] Sindi Magdaleno, GC [address] [facility], [facility] [address] [place], [place] [address] Social History Tobacco Use Types Packs/Day Years Used Date Smoking Tobacco: Never Smokeless Tobacco: Never Alcohol Use Standard Drinks/Week Comments No 0 (1 standard drink = 0.6 oz pur e alcohol) PHQ-2 Answer Date Recorded PHQ-2 Score 6 08/26/2022 Adolescent Education Answer Date Record ed Getting School Help Needed Not on file 01/22 Sex and Gender Information Value Date Recorded Sex Assigned at Male 01/01/2020 8:30 AM CDT Legal Sex Male 3:43 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 Gender Identity Male 01/01/2020 8:30 AM CDT Sexual Orientation Straight 01/01/2020 8: 30 AM CDT documented as of this encounter Plan of Treatment Not on file documented as of this encounter Visit Diagnoses Not on filedocumented in this encounter Additional Health Concerns Infection Onset Date Last Indicated Resolved Time Rule Out COVID-19 01/16/2024 01/16/2024 01/16/2024 1:34 PM CDT MRSA 10/08/2024 10/08/2024 Assessment Noted Time PHQ-9 Depression Total Score: 24 023 12:13 PM CDT documented as of this encounter Care Teams Estimator Binding Relationship Specialty Start Date End Date [facility], [address] [address] PCP - General 12/24/21 Good Ramirez MD [facility] [address] [facility] 140 [place] [address] Psychiatrist Psychiatry 01/02/20 Moises Hall MD [address]75 [facility] 200 [place] [address] Assigned Neuroscience Provider 09/04/22 Fatou De Leon, PASorinC [address] [facility] 500 [place] [address] Physician Early Childhood Special Educator Urology 01/26/23 Sindi Magdaleno GC [address] [place], [place] [address] Genetic Counselor 06/21/23 documented as of this encounter
--- OUTSIDE RECORDS SUMMARY | 2025-02-21 00:10 | XMS_ITS | Encounter Summary ---
Author Organization [place] Address [address] [place] [address] Care Team Providers Care Automatic Gluing Machine Operator Name Role Phone Neeraj Duron Primary Care Provider Good Ramirez MD Unavailable [phone] Moises Hall MD Unavailable + [phone] [place] Parish MD Unavailable [phone] [facility] Primary Care Provider Moises Hall MD Unavailable + [phone] Fatou De Leon-C Unavailable [phone] Sindi Magdaleno GC Unavailable [phone] Encounter Details Date Type Department Care Team (Late st Contact Info) Description 08/22/2020 Records - [facility] CONVERSION Scan, Non-Provider Social History Tobacco Use Types Packs/Day Years Used Date Smoking Tobacco: Never Smokeless Tobacco: Never Alcohol Use Standard Drinks/Week Comments No 0 (1 standard drink = 0.6 oz pur e alcohol) PHQ-2 Answer Date Recorded PHQ-2 Score 4 01/01/2020 Sex and Gender Information Value Date Recorded Sex Assigned at Male 01/01/2020 8:30 AM CDT 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 Gender Identity Male 01/01/2020 8:30 AM CDT Sexual Orientation Straight 01/01/2020 8: 30 AM CDT documented as of this encounter Plan of Treatment Not on file documented as of this encounter Visit Diagnoses Not on filedocumented in this encounter Additional Health Concerns Infection Onset Date Last Indicated Resolved Time COVID-19 Comment:Per ED notes, patient tested positive [...] documented as of this encounter Care Teams Automatic Gluing Machine Operator Relationship Specialty Start Date End Date Neeraj Duron [address] [address] PCP - General Family Practice 10/04/17 12/23/21 [facility], [address] [address] PCP - General 12/24/21 Good Ramirez MD [facility] [address] [facility] 140 [place] [address] Psychiatrist Psychiatry 01/02/20 Moises Hall MD 5775 [facility] 200 [place] [address] Assigned Neuroscience Provider 02/15/20 06/11/22 [place] Parish MD [address] [place] [address] Assigned Heart and Vascular Provider 10/19/20 04/16/22 Moises Hall MD [address] [facility] [address] [place], [place] [address] Assigned Neuroscience Provider 09/04/22 Fatou De Leon PA-C [address] [place] [address] Physician Mortgage Or Loan Underwriter Urology 01/26/23 Sindi Magdaleno GC [address] [place] [address] Genetic Counselor 06/21/23 documented as of this encounter
--- OUTSIDE RECORDS SUMMARY | 2025-02-21 00:10 | XMS_ITS | Clinical Summary ---
[facility] Address [address] [place] [address] Care Team Providers Care Corsetier Name Role Phone Bert Rollins MD Primary Care Provider Unava ilable Source Comments You are receiving this document as you are listed as the primary care provider,follow-up provider, or the patient has been referred to you for consultation.This is in compliance with the Medicare andMedicaid EHR Incentive Program,which states Providers who transition their patient to another setting of careor provider of care or refers their patient to another provider of care shouldprovide summary care record for each transition of care or referral. [facility] Allergies Active Allergy Reactions Criticality Noted Date Comments Gluten Meal Headache,Other, see comments,Abdominal Pain 01/04/2017 Joint pain Milk (Cow) Diarrhea 01/04/2017 Nsaids High 07/10/2015 Other reaction(s): Renal Failure Transplant 09/16/2011 Medications amLODIPine (AKA NORVASC) 5 MG tabletIndicatio ns:Left knee pain Take by mouth daily (every 24 hours). 11/22/2014 Active aspirin EC 81 MG enteric coated tabletIndicatio ns:Left knee pain Take 1 Tablet (81 mg) by mouth daily. 11/22/2014 Active diltiazem CD coated beads (CARDIZEM CD) 120 MG 24 hour release capsuleIndicati ons:Left knee pain Take 1 Capsule (120 mg) by mouth daily. 11/22/2014 Active acyclovir (AKA ZOVIRAX) 200 MG capsuleIndicati ons:Left knee pain Take 1 Capsule (200 mg) by mouth five times a day. 11/22/2014 Active allopurinol (AKA ZYLOPRIM) 100 MG tabletIndicatio ns:Left knee pain Take 1 Tablet (100 mg) by mouth daily. 11/22/2014 Active cycloSPORINE modified (GENGRAF) 25 MG capsuleIndicati ons:Left knee pain Take 1 Capsule (25 mg) by mouth two times a day. 11/22/2014 Active gabapentin (AKA NEURONTIN) 100 MG capsuleIndicati ons:Left knee pain Take 1 Capsule (100 mg) by mouth three times a day. 11/22/2014 Active pravastatin (AKA PRAVACHOL) 10 MG tabletIndicatio ns:Left knee pain Take 1 Tablet (10 mg) by mouth daily. 11/22/2014 Active predniSONE (AKA DELTASONE) 5 MG tabletIndicatio ns:Left knee pain Take 1 Tablet (5 mg) by mouth daily. 11/22/2014 Active leveTIRACETAM (AKA KEPPRA) 1000 MG tabletIndicatio ns:Left knee pain Take by mouth 2 times daily. 11/22/2014 Active cholecalciferol (AKA VITAMIN D3) 1000 UNITS tabletIndicatio ns:Left knee pain Take 1 Tablet (1,000 Units) by mouth daily. 11/22/2014 Active omeprazole (PRILOSEC) 20 MG capsuleIndicati ons:Left knee pain Take 1 Capsule (20 mg) by mouth daily. 11/22/2014 Active sertraline (ZOLOFT) 100 MG tablet 04/13/2016 Active mirtazapine (REMERON) 15 MG tablet 04/13/2016 Active cyanocobalamin ([facility] VITAMIN B12) 1000 MCG tablet Take 1 Tablet (1,000 mcg) by mouth. Active ARIPiprazole (ABILIFY) 2 MG tablet 10/26/2018 Active mycophenolate (CELLCEPT) 500 MG tablet Take 2 Tablets (1,000 mg) by mouth. 01/06/2018 Active calcipotriene (DOVONEX) 0.005 % cream Mix 1:1 with efudex, apply twice daily for 7 days. 60 g 02/26/2020 Active fluorouracil (EFUDEX) 5 % cream Mix 1:1 with dovonex, apply twice daily for 7 days. Wash hands after applying. Avoid sun. 40 g 11 02/26/2020 Active Active Problems Problem Noted Date Diagnosed Date Genital herpes 09/14/2024 GERD with stricture 09/14/2024 HTN (hypertension) 09/14/2024 LUIZA (obstructive sleep apnea) 09/14/2024 Overview (09/14/2024): does not tolerate cpap Typical atrial flutter 09/14/2024 History of squamous cell carcinoma of skin 08/25 Persistent atrial fibrillation 12/13/2023 Benign prostatic hyperplasia with urinary hesita ncy 04/12/2023 Kidney stone 2022 Compression of lumbar vertebra 01/22/2022 Seizure disorder 02/23/2017 Attention deficit hyperactiv ity disorder (ADHD), combined type 01/31/2017 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 04/27/2016 History of renal transplant 04/27/2016 Traumatic brain injury without loss of conscious ness 01/20/2016 Osteopenia 03/21/2013 Hyperlipidemia 03/21/2012 Spermatocele of epididymis, single 11/08/2011 Immunosuppressive management encounter following kidney transplant 09/21/2011 Vitamin D deficiency 07/26/2011 Restless legs syndrome 07/26/2011 Gout 06/22/2011 Secondary hyperparathyroidism, renal 06/15/2011 S/P hernia repair 06/15/2011 Prurigo nodularis 06/01/2011 Hernia, incisional 04/06/2011 S/p nephrectomy 09/29/2009 Diverticulosis of colon 09/09/2009 Encounters Date Type Department Care Team Description 01/24/2025 Orders Only [facility] ProviderHung MD 01/24/2025 Orders Only [facility] DE[facility] Provider, MD Hung from Last 3 Months Social History Tobacco Use Types Packs/Day Years Used Date Smoking Tobacco: Never Smokeless Tobacco: Never Alcohol Use Standard Drinks/Week Comments Not Currently 0 (1 standard drink = 0.6 oz pur e alcohol) Sex and Gender Information Value Date Recorded Sex Assigned at Not on file Legal Sex Male 6:03 AM CDT Gender Identity Not on file Sexual Orientation Not on file Last Filed Vital Signs Vital Sign Reading Time Taken Comments Blood Pressure 133/105 10/02/2024 1:34 PM CDT took bp meds late today (2h ago) Pulse 101 10/02/2024 1:34 PM CDT Temperature 36.4 C (97.5 F) 10/02/2024 1:34 PM CDT Respiratory Rate 14 10/02/2024 1:33 PM CDT Oxygen Saturation 98% 10/02/2024 1:3 3 PM CDT Inhaled Oxygen Concentration - - Weight 102.1 kg (225 lb) 11/22/2014 2:1 5 PM CDT Height - - Body Mass Index - - Plan of Treatment Health Maintenance Due Date Last Done Comments Colon Cancer Screening Plan Due 1960 Hep C Screening (Preventive Services) 1960 MTM Targeted 1960 PSA Screening Discussion 1960 Cholesterol 1993 HepB Vaccine (1) 2018 Zoster/Shingles Vaccine (2 of 2) 05/07/2019 03/12/2019 Pneumococcal Vaccine 50+ Yrs (3 of 3 - PCV20 or PCV21) 01/05/2023 01/05/2018, 02/26/2013, 01/24/2008 Medicare Annual Wellness Visit 04/25/2024 COVID-19 Vaccine ( season) 2024 02/29/2024, 12/20/2022, 05/26/2022, Additional history exists Influenza Vaccine (#1) 2024 , 01/19/2023, 02/11/2022, Additional history exists DTaP/Tdap/Td Vaccine (3 - Tdap) 10/30/2029 10/31/2019, 11/27/2008 RSV Vaccine (1 - 1-dose 75+ series) 2033 HepA Vaccine Aged Out No longer eligi ble based on patient's age to complete this topic Hib Vaccine Aged Out No longer eligi ble based on patient's age to complete this topic IPV (Polio) Vaccine Aged Out No longe r eligible based on patient's age to complete this topic MCV4 Vaccine Aged Out No longer eligi ble based on patient's age to complete this topic Meningococcal B Vaccine Aged Out No l onger eligible based on patient's age to complete this topic Procedures Procedure Name Priority Date/Time Associated Diagnosis Comments EKG 01/24/2025 CARDIAC PROCEDURE--SCAN 01/24/2025 from Last 3 Months Results * EKG (01/24/2025) us Interface Provider EKG Final Resu lt * CARDIAC PROCEDURE--SCAN (01/24/2025) us Interface Provider DUMMY/OTHER/AR Final Resu lt from Last 3 Months Insurance UCARE MEDICARE UCARE MEDICARE Care Teams Corsetier Relationship Specialty Start Date End Date Bert Rollins MD PCP - General 07/26/10
[2025-02-21 00:26] VITALS: BP 156/105; PULSE 119; RESP 20; TEMP 36.7; O2SAT 94; BMI 36.3
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
--- NOTE | 2025-02-21 01:02 | CRLHL7_ITS ---
For Patients: As a result of the 21st Century Cures Act, medical imaging exams and procedure reports are released immediately into your electronic medical record. You may view this report before your referring provider. If you have questions, please contact your health care provider. INDICATION: Urinary retention, history of kidney transplant, stone, rule out obstruction. TECHNIQUE: CT of the abdomen and pelvis without IV contrast. Coronal and sagittal reconstructions. COMPARISON: None available. FINDINGS: Lower chest: Elevation of the left hemidiaphragm. Bibasilar atelectasis or scarring. Mild cardiomegaly. Trace pericardial effusion. Liver: Multiple hepatic cysts and subcentimeter hypodense lesions which are incompletely characterized. Gallbladder and bile ducts: Cholelithiasis without definite signs of gallbladder inflammation. No biliary dilatation. Spleen: Unremarkable. Pancreas: There is a 3 cm hypodense lesion in the uncinate process which may be cystic (series 2, image 77 and series 4, image 83). Adrenal glands: Unremarkable. Kidneys, Ureters, and Bladder: The [place] kidneys are not visualized and likely surgically absent. Right lower quadrant transplant kidney with mild hydronephrosis. No ureteral dilation or obstructing calculi. Few tiny nonobstructing renal caliceal stones. The urinary bladder is moderately distended. No bladder wall thickening or perivesical inflammation. There is a small curvilinear hyperdense focus in the bladder neck which may be related to the prostate gland but is indeterminate (series 2, image 159). Reproductive organs: No significant prostate enlargement. GI tract/Peritoneum: No small bowel dilation. Moderate stool burden. Extensive colonic diverticulosis without evidence of diverticulitis. Negative appendix. No intraperitoneal free air or fluid. Vasculature: Abdominal aorta is normal in caliber. 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 Lymph nodes: No lymphadenopathy. Abdominal Wall: Status post ventral hernia repair. Small fat containing umbilical and left inguinal hernias. Skin thickening and subcutaneous fat stranding in the lower anterior abdominal wall. Bones: Degenerative changes of the spine. Chronic appearing mild L1 and L2 superior endplate compression fractures. Old fracture of the right posterior 11th rib. IMPRESSION: 1. The [place] kidneys are likely surgically absent. Right lower quadrant transplant kidney with mild hydronephrosis. No obstructing urinary calculi identified. 2. Moderately distended urinary bladder. No signs of bladder inflammation. Small curvilinear hyperdense focus in the bladder neck may be related to the prostate gland but is indeterminate. 3. Indeterminate 3 cm hypodense lesion in the uncinate process of the pancreas. Recommend further evaluation with nonemergent pancreas protocol CT or MRI. 4. Findings suggestive of cellulitis in the lower anterior abdominal wall. Recommend direct visualization. 5. 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 6. Mild cardiomegaly with trace pericardial effusion. Please note that all CT scans at this facility use dose modulation, iterative reconstruction, and/or weight-based dosing when appropriate to reduce radiation dose to as low as reasonably achievable. Dictated by Nicolette Mckeon MD @ 02/21/2025 2:00:27 AM (Electronically Signed)
[2025-02-21 01:20] LABS: Hematocrit* 47.9 % (37.0-53.0); Hemoglobin* 15.2 gm/dL (13.5-17.5); Immature Granulocytes Abs Auto 0.02 K/uL (0.00-0.30); Immature Granulocytes Pct Auto 0.2 %; Mean Corpuscular HGB Conc 32 gm/dL (32-36); Mean Corpuscular Hemoglobin 33 pg (26-34); Mean Corpuscular Volume 102 fL (80-100); RDW Coefficient of Variation % 13.0 % (11.5-15.5); Red Blood Count* 4.68 m/uL (4.30-5.90); White Blood Count* 8.67 K/uL (4.50-11.00)
[2025-02-21 01:25] LABS: Lymphocytes Absolute Auto 1.50 K/uL (0.90-2.90); Slide Review Reflex No
[2025-02-21 01:37] LABS: Appearance Urine Clear (Clear)
[2025-02-21 01:45] LABS: Albumin* 4.2 g/dL (3.3-5.0); Chloride* 102 mmol/L (96-114); Potassium* 4.7 mmol/L (3.6-5.1)
[2025-02-21 01:47] LABS: Alanine Aminotransferase* 19 U/L (4-50); Aspartate Amino Transferase* 25 U/L (12-35); Blood Urea Nitrogen* 35 mg/dL (7-30); Carbon Dioxide* 24 mmol/L (20-32); Creatinine* 1.3 mg/dL (0.5-1.5); Est. Creatinine Clearance* 59.53; Estimated Glomerular Filt Rate 61 ml/min
[2025-02-21 01:48] LABS: Alkaline Phosphatase* 97 U/L (40-150); Bilirubin Total* 1.4 mg/dL (0.1-1.5); Calcium* 9.9 mg/dL (8.4-10.6); Glucose* 97 mg/dL (60-115); Total Protein* 7.2 g/dL (6.0-8.3)
[2025-02-21 02:06] LABS: Anion Gap 12 mEq/L (7-15); Sodium* 138 mmol/L (135-149)
[2025-02-21 02:41] VITALS: BP 146/108; PULSE 98; RESP 18; TEMP 36.8; O2SAT 95
== END 2025-02-21 03:21 | disposition home or self-care (01) ==
PROVIDERS: Emergency Provider Emergency Medicine; PCP Physician Assistant Medical
DX: R33.9 Retention of urine, unspecified (principal); N13.30 Unspecified hydronephrosis; Z94.0 Kidney transplant status
CPT/HCPCS: 36415; 51702; 51798; 74176; 80053; 81001; 82565; 85025; 87086; 99284; 99285

== ENCOUNTER 2025-03-14 12:26 | Outpatient (CLI) | payer OTHER, SELFPAY ==
[2025-03-14 13:14] LABS: Hematocrit* 48.7 % (37.0-53.0); Hemoglobin* 15.2 gm/dL (13.5-17.5); Immature Granulocytes Pct Auto 0.7 %; Mean Corpuscular HGB Conc 31 gm/dL (32-36); Mean Corpuscular Hemoglobin 32 pg (26-34); Mean Corpuscular Volume 102 fL (80-100); RDW Coefficient of Variation % 12.3 % (11.5-15.5); Red Blood Count* 4.77 m/uL (4.30-5.90); White Blood Count* 13.03 K/uL (4.50-11.00)
[2025-03-14 13:22] LABS: Immature Granulocytes Abs Auto 0.10 K/uL (0.00-0.30); Lymphocytes Absolute Auto 1.80 K/uL (0.90-2.90); Slide Review Reflex No
[2025-03-14 13:28] LABS: Chloride* 102 mmol/L (96-114); Sodium* 138 mmol/L (135-149)
[2025-03-14 13:29] LABS: Potassium* 4.6 mmol/L (3.6-5.1)
[2025-03-14 13:31] LABS: Blood Urea Nitrogen* 26 mg/dL (7-30); Creatinine* 1.3 mg/dL (0.5-1.5); Estimated Glomerular Filt Rate 61 ml/min
[2025-03-14 13:32] LABS: Anion Gap 9 mEq/L (7-15); Calcium* 10.2 mg/dL (8.4-10.6); Carbon Dioxide* 27 mmol/L (20-32); Glucose* 136 mg/dL (60-115)
== END 2025-03-14 12:27 | disposition home or self-care (01) ==
LOC: NPINS 03-28 13:48
PROVIDERS: PCP Physician Assistant Medical; Visit Provider Internal Medicine Nephrology
DX: Z94.0 Kidney transplant status (principal); Z79.899 Other long term (current) drug therapy; Z48.22 Encounter for aftercare following kidney transplant; Z79.52 Long term (current) use of systemic steroids; E87.5 Hyperkalemia
CPT/HCPCS: 80048; 85025